=== PATIENT | male | born 1945 | race Caucasian/White ===

== ENCOUNTER 2023-10-09 13:52 | Observation (INO) | payer MEDICARE, OTHER, SELFPAY ==
[2023-10-09] VITALS (14 sets, daily range): BP systolic 118–162; BP diastolic 56–82; PULSE 58; BMI 23.8; BMI 23.9
[2023-10-09 09:54] LABS: % Basophils 0.4 % (0-2); % Eosinophils 0.6 % (0-6); % Immature Granulocytes 0.5 % (0-0.5); % Lymphocytes 7.3 % (20.5-51.1); % Monocytes 8.8 % (1.7-9.3); % Neutrophils 82.4 % (42.2-75.2); Absolute Eosinophils 0.1 10^3/uL (0-0.7); Absolute Lymphocytes 0.6 10^3/uL (1.2-3.4); Absolute Monocytes 0.7 10^3/uL (0.1-0.6); Absolute Neutrophils 6.7 10^3/uL (1.4-6.5); Hemoglobin 12.3 g/dL (13.0-18.0); Mean Corp Hgb Conc. 34.2 g/dL (33.0-37.0); Mean Corpuscular Volume 102.6 fL (80.0-94.0); Mean Platelet Volume 9.6 fL (7.4-10.4); Nucleated Red Blood Cells % 0 % (-); Platelet Count 159 10^3/uL (130-400); Red Blood Cell Count 3.51 10^6/uL (4.70-6.10); Red Cell Dist. Width 12.2 % (11.5-14.5); White Blood Cell Count 8.1 10^3/uL (4.8-10.8)
--- NOTE | 2023-10-09 09:54 | ED.GENMED ---
History of Present Illness
General
Chief Complaint: Fever
Source: patient
Exam Limitations: none
Time Seen by Provider: 10/09/23 09:38
Travel History
Have you had any contact with someone who has COVID-19?: No
Do you have any symptoms of coronavirus? Fever > 100 degrees, chills, cough, shortness of breath, sore throat, loss of taste or smell, muscle aches, or headache?: Yes
Symptoms:: fever
History of Present Illness
History of Present Illness:
See MDM
Past History
Past History
ED Past Medical History: Cancer (Prostate cancer 2012) and Other (Diverticulosis)
ED Past Surgical History: Urological (Prostatectomy 2012) and Other (Hernia repair)
Social History
Tobacco: Non-smoker
Alcohol: Occasional (Rare)
Personal:
Living: with family
Employment: Retired
Family History
Family History: Other (Noncontributory)
Phy Exam
Physical Exam
Physical Exam:
See MDM
Course
Orders/Labs/Results
Orders:
Orders
10/09/23 09:36
Electrocardiogram (*1) Urgent
Reason for Study: Other
Other Reason for Exam: Possible Sepsis
IV Insert/Care/Rem.- Treatment PRN
O2 Therapy [RESP] Urgent
Titrate/Wean O2 to maintain O2 sat greater than (%): 93
Special Instructions: TO MAINTAIN CONTINUOUS O2 SATS > OR = 93%
Pulse Ox/cont/shift [RESP] Urgent
Quantity: 1
Special Instructions: CONTINUOUS
10/09/23 09:37
EKG- Treatment ONCE
10/09/23 09:40
Complete Blood Count/With Diff Urgent
Comprehensive Metabolic Panel Urgent
Blood Culture Q30M
ALEX Source: Blood/Venous
Specimen Description:
Comment: FROM 2 SEPARATE SITES
10/09/23 09:41
COVID-19 Antigen Urgent
Source: Nasal Swab
Lactic Acid Urgent
Blood Culture Q30M
ALEX Source: Blood/Venous
Specimen Description:
Comment: FROM 2 SEPARATE SITES
Influenza A+B Rapid Molecular Urgent
ALEX Source: Nasal Swab
Specimen Description:
10/09/23 09:46
CT Head W/o Iv Contrast Urgent
Comment:
Reason For Exam: fall, headache, hx prostate ca
CR Chest - 2 Views Urgent
Comment:
Reason For Exam: fever, cough, prostate ca
10/09/23 09:49
Acetaminophen [Tylenol] 1,000 mg .ROUTE .STK-MED ONE
10/09/23 09:52
Acetaminophen [Tylenol] 1,000 mg PO NOW STA
10/09/23 09:56
0.9% Sodium Chloride 1000 ml [Nss] 1,000 ml IV BOLUS
10/09/23 11:20
Urinalysis Reflex To Culture Urgent
Date Specimen was Collected: 10/09/23
Time Specimen was Collected: 11:18
Urine Microscopic Reflex Cult Urgent
10/09/23 12:34
Oxycodone [Roxicodone] 5 mg PO NOW STA
Abnormal Lab Results
10/09/23 10/09/23 10/09/23
09:40 09:41 11:20
RBC 3.51 L 10^6/uL
(4.70-6.10)
Hgb 12.3 L g/dL
(13.0-18.0)
Hct 36.0 L %
(39.0-52.0)
MCV 102.6 H fL
(80.0-94.0)
MCH 35.0 H pg
(27.0-31.0)
Absolute Neuts (auto) 6.7 H 10^3/uL
(1.4-6.5)
Absolute Lymphs (auto) 0.6 L 10^3/uL
(1.2-3.4)
Absolute Monos (auto) 0.7 H 10^3/uL
(0.1-0.6)
Neutrophils % 82.4 H %
(42.2-75.2)
Lymphocytes % 7.3 L %
(20.5-51.1)
Sodium 134 L mmol/L
(135-145)
Glucose 110 H mg/dl
(70-99)
Total Protein 6.0 L g/dl
(6.3-8.2)
Albumin 3.4 L g/dl
(3.5-5.0)
Ur Occult Blood Reflex 2+ A
(Negative)
Urine RBC 3-6 A /HPF
(0-2)
SARS-CoV-2 Antigen Positive A
(Negative)
10/09/23 09:40
10/09/23 09:40
Vital Signs
Initial and Last Documented VS:
Initial Vital Signs
Temp Pulse Resp BP Pulse Ox
100.5 F H 69 18 157/71 98
10/09/23 09:38 10/09/23 09:38 10/09/23 09:38 10/09/23 09:38 10/09/23 09:38
Last Documented Vital Signs
Temp Pulse Resp BP Pulse Ox
100.5 F H 69 18 157/71 99
10/09/23 09:38 10/09/23 09:38 10/09/23 09:38 10/09/23 09:38 10/09/23 10:30
MDM/Problems Addressed
Differential Diagnosis Includes:
HPI and MDM Narrative:
77-year-old male presenting with 2 falls earlier today. Patient states he got up to go to the bathroom and fell. He is unsure if he hit his head. He does complain of mild headache. Incidentally, patient found be febrile but he is not sure where
the fever is coming from. He denies shortness of breath or cough. He denies rash. Patient states he has a history of metastatic prostate cancer. He is not currently on chemotherapy or hormone therapy.
On exam, patient is weak and fatigued. He has dry mucous membranes. He does admit to frequent urination but states this is somewhat common after his prostatectomy. Will obtain urinalysis, chest x-ray and viral testing to look for source of
infection.
Physical exam
General: Weak and fatigued
HEENT: protecting airway. Dry mucous membranes
Neck: supple
CV: No evidence of cyanosis. Regular rate and rhythm
Resp: No accessory muscle use. Lungs clear
Abd: Non-distended and nontender
Extremities: Skin abrasions to bilateral elbows without bony tenderness
Neuro: alert
Psych: Normal affect
Skin: Intact
Problems Addressed including Acute and Chronic Conditions affecting care:
1. Fever
Acuity: acute
Prognosis: stable
Details: Patient given Tylenol. Will obtain chest x-ray and urinalysis.
2. Dehydration
Acuity: acute
Prognosis: unstable
Details: Will give IV fluids
3. Fall
Acuity: acute
Prognosis: stable
Details: Will obtain CT head
Updates
10:28 AM daughter now at bedside. I explained to both of them that COVID test is positive.
Given persistent weakness, will admit for IV fluids
Differential Diagnosis (but not limited to): Intracranial hemorrhage, brain mass, pneumonia, viral syndrome, UTI
Testing considered: CT abdomen/pelvis but no tenderness localized
Drug therapy (if applicable): OTC meds, please see d/c instruction regarding Rx drugs
Amount and/or Complexity of Data Reviewed
Clinical info obtained from: Patient
External data reviewed: N/A
Labs I independently reviewed (but not limited to): White blood cell count normal
Radiology: X-ray independently reviewed: Chest x-ray clear
The CT scan was personally and independently reviewed. In addition, official CT report reviewed.
Pulse Ox: not hypoxic
EKG independently reviewed: Sinus rhythm, normal axis, no STEMI
Die Operator: sinus rhythm
Critical Care: N/A
Risk of Complication:
Social Determinants of health: Good social support
Discussed with other providers: Hospitalist
Escalation of Care includes Admit/Obs: Given frequent falls and dehydration, will continue IV fluids and admit
Occasional wrong word or 'sound a like' substitutions may have occurred due to the inherent limitations of voice recognition software. Read the chart carefully and recognize, using context, where substitutions have occurred.
*Critical Care Note
Total Time (30-74mins, 75-104mins- exclusive of procedures): Not Applicable
ED Attending Note
-
Portions of this chart may have been created with voice recognition software.� Occasional wrong word or��sound alike� substitutions may have occurred due to the inherent limitations of voice recognition software.
Discharge Plan
Departure
Patient Disposition: Admit
Date of Disposition: 10/09/23
Time of Disposition: 12:37
Admit to: Med/Surg
Presentation/result/management discussed w/ accepting MD/DO: Hospitalist
Discharge Problem:
COVID-19, Dehydration, Abrasion of elbow
Prescriptions:
No Action
multivitamin [Daily Multiple] 1 EACH tablet
1 tab PO DAILY
glucosam-chond id-jurfvl-fi ac 1 EACH capsule
1 cap PO DAILY
Patient Comments:
1500mg/1200 mg
Calcium 600-Vit D3 500 Softgel
2 tab PO Q48H
Patient Comments:
atorvastatin 10 MG tablet
10 mg PO .QPM EVERY 48 HRS
Patient Comments:
patient tAKES THIS EVERY OTHER DAY
gabapentin 100 MG capsule
100 mg PO HS
triptorelin pamoate [Trelstar] 11.25 MG suspension for reconstitution
11.25 mg IM S8OEISH
acetaminophen [Tylenol Extra Strength] 500 MG tablet
1,000 mg PO Q6HPRN PRN (Reason: back pain)
ibuprofen 400 MG tablet
400 mg PO Q6HPRN PRN (Reason: back pain)
pembrolizumab [Keytruda] 100 MG/4 ML solution
100 mg IV .EVERY 3 WKS
oxycodone 10 MG tablet
10 mg PO Q6HPRN PRN (Reason: pain) Qty: 12 0RF
Referrals:
UNKNOWN - PT DOES,NOT KNOW [Family Provider] -
Interventions
Interventions:
*Risk Screen - Suicide Last Done: 10/09/23 09:35
*General Assessment Last Done: 10/09/23 09:35
*Neglect/Abuse Screening Last Done: 10/09/23 09:35
*ED COVID-19 Vaccine History Last Done: 10/09/23 09:35
ED- Neurological Assessment Last Done: 10/09/23 10:30
ED-Skin Assessment Last Done: 10/09/23 10:30
[2023-10-09] MEDS: TYLENOL 1000 MG PO (09:55)
[2023-10-09] MEDS: NSS 1000 IV ×2 (09:56→18:18)
[2023-10-09 10:04] LABS: COVID-19 Antigen Positive (Negative)
[2023-10-09 10:06] LABS: Lactic Acid 1.1 mmol/L (0.7-2.0)
[2023-10-09 10:08] LABS: ALT (SGPT) 21 U/L (0-50); AST (SGOT) 52 U/L (17-59); Albumin 3.4 g/dl (3.5-5.0); Alkaline Phosphatase 107 U/L (38-126); Blood Urea Nitrogen 19 mg/dl (9-20); Calcium 8.9 mg/dl (8.4-10.2); Carbon Dioxide 29 mmol/L (22-30); Chloride 100 mmol/L (98-107); Estimated Creatinine Clearance 95 ml/min; Glucose 110 mg/dl (70-99); Potassium 3.6 mmol/L (3.5-5.1); Sodium 134 mmol/L (135-145); Total Bilirubin 0.6 mg/dl (0.2-1.3); eGFR > 60.00
[2023-10-09 12:04] LABS: Urine Albumin Trace (Neg - Trace); Urine Bilirubin Negative (Negative); Urine Character Clear (Clear); Urine Color Yellow; Urine Glucose Negative (Negative); Urine Ketone Negative (Negative); Urine Leukocyte Negative (Negative); Urine Nitrite Negative (Negative); Urine Occult Blood 2+ (Negative); Urine Urobilinogen Negative (Neg - 1+)
[2023-10-09 12:24] LABS: Urine Squamous Cell 0-2 /LPF (Few)
[2023-10-09] MEDS: ROXICODONE 5 MG PO (12:58)
--- NOTE | 2023-10-09 13:10 | HPS.HSE ---
Family Physician
-
Family Physician: NOT KNOW UNKNOWN - PT DOES
Chief Complaint
-
falls
History of Present Illness
77 y/o M with PMHx metastatic prostate CA who presents with weakness and falls. Today the patient felt weak and rundown. Had 2 falls at home and the could not get him up. He denies any other recent symptoms including fevers, chest pain,
shortness of breath, nausea, vomiting, diarrhea, abdominal pain, headache, rash, dysuria, focal neurological deficit. The ER the patient was febrile and found to be COVID-positive.
Medical History
Past Medical History
Past Medical History: Reports Hypercholesterolemia and Other (as per HPI)
Additional Past Medical History:
as per HPI
Past Surgical History: Reports Other (N/A)
Social History
Tobacco: Non-smoker
Alcohol: Occasional
Drug: None
Family History
Family History: Not pertinent
Allergies / Home Medications
Allergies reflects when Allergies were last updated in [facility].
Home Medications with original date entered in [facility]
Allergy/Medication List:
Allergies
Allergy/AdvReac Type Severity Reaction Status Date / Time
No Known Allergies Allergy Verified 10/09/23 09:38
Home Medications
exqygjhuyx-wyduprjxzx-sipxpipl-hyalur ac 375 mg-300 mg-175 mg-2 mg cap 1 cap PO DAILY 07/22/13
multivitamin (Daily Multiple tablet) 1 tab PO DAILY 07/22/13
Calcium 600-Vit D3 500 Softgel 2 tab PO Q48H 03/30/17
atorvastatin 10 mg tablet 10 mg PO .QPM EVERY 48 HRS 03/15/21
gabapentin 100 mg capsule 100 mg PO HS 03/15/21
triptorelin pamoate 11.25 mg IM suspension (Trelstar) 11.25 mg IM [id number] 03/15/21
acetaminophen 500 mg tablet (Tylenol Extra Strength) 1,000 mg PO Q6HPRN PRN back pain 02/27/22
ibuprofen 400 mg tablet 400 mg PO Q6HPRN PRN back pain 02/27/22
oxycodone 10 mg tablet 10 mg PO Q6HPRN PRN pain #12 tabs 02/27/22
pembrolizumab 25 mg/mL intravenous solution (Keytruda) 100 mg IV .EVERY 3 WKS 02/27/22
Review of Systems
-
History Source: Patient
A 12 point ROS was completed and negative except as noted: Yes
Physical Exam
Vital Signs
Vital Signs
Temp Pulse Resp BP Pulse Ox
100.5 F H 69 18 157/71 99
10/09/23 09:38 10/09/23 09:38 10/09/23 09:38 10/09/23 09:38 10/09/23 10:30
Physical Exam
General: Other (.)
Laboratory Results
-
10/09/23 09:40
10/09/23 09:40
Laboratory Results
Lactic Acid 1.1 mmol/L (0.7-2.0) 10/09/23 09:41
Total Bilirubin 0.6 mg/dl (0.2-1.3) 10/09/23 09:40
AST 52 U/L (17-59) 10/09/23 09:40
ALT 21 U/L (0-50) 10/09/23 09:40
Alkaline Phosphatase 107 U/L (38-126) 10/09/23 09:40
Impression/Plan
-
Gen: NAD, AAOx3, appears chronically ill.
Eyes: EOMI, PERRLA, no scleral icterus.
Neck: supple.
CV: blossom, reg rhythm, +S1/S2, no m/r/g.
Resp: CTAB, no rales, wheezes, or rhonchi.
Abd: +BS, soft, NT, ND
Skin: No rashes.
Neuro: CN 2-12 intact, non-focal.
Psych: Normal mood and affect.
CXR: No acute cardiopulmonary process.
CT brain: No acute intracranial abnormalities. Findings compatible with diffuse cortical atrophy with minimal nonspecific white matter changes.
Acute COVID infection:
-CXR clear, not hypoxemic, no COVID directed therapies indicated
-weakness likely due to acute COVID infection, PT/OT
-gentle IVFs
Metastatic prostate CA
HLD: Cont statin
DNR - confirmed with pt in the ER with present
Lovenox
[2023-10-09] MEDS: LOVENOX 40 MG SC (18:18)
[2023-10-09] MEDS: TYLENOL 650 MG PO (20:30)
[2023-10-10] MEDS: ROXICODONE 5 MG PO ×2 (03:44→21:12)
--- NOTE | 2023-10-10 06:41 | W.PN.HOSP.TC ---
Today's Communication/Plan
-
see bold
Assessment / Plan
Assessment / Plan
Gen: NAD, AAOx3, appears chronically ill.
Eyes: EOMI, PERRLA, no scleral icterus.
Neck: supple.
CV: RRR, +S1/S2, no m/r/g.
Resp: CTAB anteriorly, no rales, wheezes, or rhonchi.
Abd: remains +BS, soft, NT, ND
Skin: No rashes.
Neuro: CN 2-12 intact, non-focal.
Psych: Normal mood and affect.
CXR: No acute cardiopulmonary process.
CT brain: No acute intracranial abnormalities. Findings compatible with diffuse cortical atrophy with minimal nonspecific white matter changes.
Acute COVID infection:
-CXR clear, not hypoxemic, no COVID directed therapies indicated
-weakness likely due to acute COVID infection, PT/OT
-gentle IVFs
-Zofran PRN for vomiting. If vomiting improves can try Paxlovid.
Metastatic prostate CA
HLD: Cont statin
DNR - confirmed with pt in the ER with present
Lovenox
Anticipated Discharge: Within 24 hours
Subjective/Interval History
-
Date of Service: October 10, 2023
Patient complains of vomiting. Says his chest is sore. Denies shortness of breath.
Objective Data
-
Vital Signs:
Vital Signs
Temp Pulse Resp BP Pulse Ox
98.1 F 60 20 144/71 94
10/09/23 23:35 10/09/23 23:35 10/09/23 23:35 10/09/23 23:35 10/09/23 23:35
I&O
10/08/23 10/09/23 10/10/23
06:59 06:59 06:59
Intake Total 1040 / 1040
Output Total 1200 / 1200
Balance -160 / -160
[2023-10-10] MEDS: ZOFRAN 4 MG IV (07:52)
[2023-10-10] MEDS: NSS 1000 IV ×2 (07:52→21:13)
[2023-10-10 08:08] VITALS: BP 177/96
[2023-10-10] MEDS: DECADRON 1 MG PO (09:14)
[2023-10-10] MEDS: THERAGRAN 1 TABLET PO (09:15)
[2023-10-10] MEDS: DUPHALAC/CHRONULAC 10 GRAMS PO (09:15)
[2023-10-10] MEDS: OSCAL 500 + D 500 MG PO (09:15)
[2023-10-10] MEDS: TYLENOL 650 MG PO (09:16)
[2023-10-10 10:40] VITALS: BMI 23.9
--- NOTE | 2023-10-10 13:04 | CM ---
CM following re: d/c planning
Chart reviewed
CM spoke with the patient via phone due to covid (+) dx; IA completed
Pt is also here as observation; MONIQUE letter reviewed via phone and a copy sent to email address [email or web address]
Pt states he & his spouse reside at [facility] in a one story dwelling with no MELVINA
L D RN patient reports independence at baseline
Pt has no past SNF/DME hx, has had [facility] however doesn't recall the agency
Pt nunez prescription coverage and rx's are filled at [facility] in [place]
Pt PCP-Dr. Gilbert Boo
No needs are anticipated once patient is stable
CM will continue to monitor patient progress and assist with any needs as applicable
PLAN; d/c home no needs anticipated
[2023-10-10 16:30] VITALS: BP 174/79
[2023-10-10] MEDS: LOVENOX 40 MG SC (18:18)
[2023-10-10] MEDS: LIPITOR 10 MG PO (21:08)
[2023-10-10 23:17] VITALS: BP 178/81
[2023-10-11 07:45] VITALS: BP 164/78
[2023-10-11] MEDS: ROXICODONE 5 MG PO ×2 (08:19→18:01)
[2023-10-11] MEDS: DECADRON 1 MG PO (08:22)
[2023-10-11] MEDS: METAMUCIL, KONSYL 1 PACKET PO (08:22)
[2023-10-11] MEDS: NSS 1000 IV (09:11)
--- NOTE | 2023-10-11 10:34 | W.PN.HOSP.TC ---
Today's Communication/Plan
-
d/c after shoulder Xray
Assessment / Plan
Assessment / Plan
Gen: NAD, AAOx3, appears chronically ill.
Eyes: EOMI, PERRLA, no scleral icterus.
Neck: supple.
CV: remains RRR, +S1/S2, no m/r/g.
Resp: CTAB anteriorly, no rales, wheezes, or rhonchi.
Abd: continues to remain +BS, soft, NT, ND
Skin: No rashes.
MSK: L shoulder without effusion, erythema, deformity. Mild TTP with palpation anteriorly and with external rotation.
Neuro: CN 2-12 intact, non-focal.
Psych: Normal mood and affect.
CXR: No acute cardiopulmonary process.
CT brain: No acute intracranial abnormalities. Findings compatible with diffuse cortical atrophy with minimal nonspecific white matter changes.
Acute COVID infection:
-CXR clear, not hypoxemic, no COVID directed therapies indicated
-weakness likely due to acute COVID infection, PT/OT
-gentle IVFs
L shoulder pain:
-check L shoulder Xray
Metastatic prostate CA
HLD: Cont statin
DNR - confirmed with pt in the ER with present
Lovenox
Anticipated Discharge: Today
Subjective/Interval History
-
Date of Service: October 11, 2023
c/o L shoulder pain. Nausea has resolved.
Objective Data
-
Vital Signs:
Vital Signs
Temp Pulse Resp BP Pulse Ox
100.1 F 50 16 164/78 96
10/11/23 07:45 10/11/23 07:45 10/11/23 07:45 10/11/23 07:45 10/11/23 07:45
I&O
10/10/23 10/11/23 10/12/23
06:59 06:59 06:59
Intake Total 1040 / 1040 880 / 880 975 / 975
Output Total 1200 / 1200 600 / 600
Balance -160 / -160 280 / 280 975 / 975
[2023-10-11 15:00] VITALS: BP 167/79
[2023-10-11] MEDS: LOVENOX 40 MG SC (18:00)
[2023-10-11 23:05] VITALS: BP 172/88
[2023-10-12] MEDS: OSCAL 500 + D 500 MG PO (07:56)
[2023-10-12] MEDS: THERAGRAN 1 TABLET PO (07:56)
[2023-10-12] MEDS: DECADRON 1 MG PO (07:56)
[2023-10-12 08:04] VITALS: BP 175/81
[2023-10-12] MEDS: ROXICODONE 5 MG PO ×2 (08:37→21:57)
--- NOTE | 2023-10-12 10:21 | W.PN.HOSP.TC ---
Today's Communication/Plan
-
see bold
Assessment / Plan
Assessment / Plan
Gen: NAD, AAOx3, appears chronically ill.
Eyes: EOMI, PERRLA, no scleral icterus.
Neck: supple.
CV: continues to remain RRR, +S1/S2, no m/r/g.
Resp: remains CTAB anteriorly, no rales, wheezes, or rhonchi.
Abd: +BS, soft, NT, ND
Skin: No rashes.
Neuro: CN 2-12 intact, non-focal.
Psych: Normal mood and affect.
CXR: No acute cardiopulmonary process.
CT brain: No acute intracranial abnormalities. Findings compatible with diffuse cortical atrophy with minimal nonspecific white matter changes.
Acute COVID infection:
-CXR clear, not hypoxemic, no COVID directed therapies indicated
-weakness likely due to acute COVID infection, PT/OT
-gentle IVFs
Polyuria and dysuria:
-U/A on 10/09/23 unremarkable
-will check repeat U/A
L shoulder pain: L shoulder Xray: Degenerative changes. No findings to suggest recent cortical fracture or dislocation.
Metastatic prostate CA
HLD: Cont statin
DNR - confirmed with pt in the ER with present
Lovenox
Anticipated Discharge: Within 24 hours
Subjective/Interval History
-
Date of Service: October 12, 2023
Denies CP/SOB. c/o polyuria and dysuria O/N.
Objective Data
-
Vital Signs:
Vital Signs
Temp Pulse Resp BP Pulse Ox
98.1 F 49 18 175/81 97
10/12/23 08:04 10/12/23 08:04 10/12/23 08:04 10/12/23 08:04 10/12/23 08:04
I&O
0210/12/23 10/13/23
06:59 06:59 06:59
Intake Total 880 / 880 1335 / 1335
Output Total 600 / 600 1100 / 1100
Balance 280 / 280 235 / 235
--- NOTE | 2023-10-12 11:07 | CM ---
Addendum entered by Fabi Ferris 10/12/23 13:24:
CM discussed with .
D/c on hold.
[facility] has accepted, pending d/c.
Updated PT may be beneficial also tomorrow, although pt does not want SNF.
Walker to be provided prior to d/c also.
Goal: home with VN and walker.
Original Note:
CM following re: d/c planning.
Pt +COVID. CM spoke with pt telephonically.
He states he requires assistance with tasks, is able to walk with a walker.
Pt requests a walker at d/c. CM attempted to reach PT, left regarding this.
CM requested walker script from MD.
Pt is not interested in SNF at this time, he is agreeable to home care.
He is agreeable to [facility], if they cannot service his location, he is agreeable to [facility] as a second choice.
Ref sent.
Pt states he sees Gilbert Boo, PCP, but has not been there in a few years.
He states he has prostate CA and sees Yeny Terry often with palliative care.
Update provided to [facility] about this regarding orders.
CM offered information for private duty caregivers, pt states will be assisting him at home.
Goal: home with [facility], pending acceptance.
Update - d/c on hold, possible d/c tomorrow.
[2023-10-12 12:53] LABS: Urine Albumin Trace (Neg - Trace); Urine Bilirubin Negative (Negative); Urine Character Clear (Clear); Urine Color Yellow; Urine Glucose Negative (Negative); Urine Ketone Negative (Negative); Urine Leukocyte Negative (Negative); Urine Nitrite Negative (Negative); Urine Occult Blood Negative (Negative); Urine Specific Gravity 1.015 (<1.030); Urine Urobilinogen Negative (Neg - 1+)
[2023-10-12] MEDS: TYLENOL 650 MG PO (12:58)
[2023-10-12 13:20] VITALS: BP 159/76; PULSE 60; O2SAT 95
[2023-10-12] MEDS: LOVENOX 40 MG SC (17:00)
[2023-10-12 17:10] VITALS: BP 174/77
[2023-10-12] MEDS: LIPITOR 10 MG PO (21:51)
[2023-10-12 23:00] VITALS: BP 157/90
[2023-10-13] MEDS: TYLENOL 650 MG PO ×3 (00:21→15:43)
[2023-10-13 07:00] VITALS: BP 168/85
[2023-10-13] MEDS: DECADRON 1 MG PO (09:17)
[2023-10-13] MEDS: DUPHALAC/CHRONULAC 10 GRAMS PO (09:17)
[2023-10-13] MEDS: ROXICODONE 5 MG PO (10:36)
--- NOTE | 2023-10-13 10:48 | W.PN.HOSP.TC ---
Today's Communication/Plan
-
d/c
Assessment / Plan
Assessment / Plan
Gen: remains NAD, AAOx3, appears chronically ill.
Eyes: EOMI, PERRLA, no scleral icterus.
Neck: supple.
CV: RRR, +S1/S2, no m/r/g.
Resp: CTAB anteriorly, no rales, wheezes, or rhonchi.
Abd: remains +BS, soft, NT, ND
Skin: remains No rashes.
Neuro: CN 2-12 intact, non-focal.
Psych: Normal mood and affect.
CXR: No acute cardiopulmonary process.
CT brain: No acute intracranial abnormalities. Findings compatible with diffuse cortical atrophy with minimal nonspecific white matter changes.
Acute COVID infection:
-CXR clear, not hypoxemic, no COVID directed therapies indicated
-weakness likely due to acute COVID infection, PT/OT
-gentle IVFs
Other problems:
Polyuria and dysuria: U/A x 2 NEG for evidence of infection
L shoulder pain: L shoulder Xray: Degenerative changes. No findings to suggest recent cortical fracture or dislocation.
Metastatic prostate CA
HLD: Cont statin
DNR - confirmed with pt in the ER with present
Lovenox
Medically cleared for d/c, case management aware.
Total time spent on d/c = 31 min. This included today's physical exam, progress note, review of laboratory and diagnostic data, preparation of discharge documents and prescriptions, and discussions about the pt's hospital course and discharge plan
with the patient and other medical dir involved in the patient's care.
Anticipated Discharge: Today
Subjective/Interval History
-
Date of Service: October 13, 2023
Polyuria has resolved, dysuria has improved.
Objective Data
-
Vital Signs:
Vital Signs
Temp Pulse Resp BP Pulse Ox
98.1 F 47 16 168/85 97
10/13/23 07:00 10/13/23 07:00 10/13/23 07:00 10/13/23 07:00 10/13/23 07:54
I&O
10/12/23 10/13/23 10/14/23
06:59 06:59 06:59
Intake Total 1335 / 1335 1920 / 1920
Output Total 1100 / 1100 1250 / 1250
Balance 235 / 235 670 / 670
--- NOTE | 2023-10-13 11:54 | CM ---
Addendum entered by Pennie Amaral 10/13/23 14:34:
Correction, patient was observation.
Original Note:
Patient seen bedside.
Patient for d/c home today.
Script provided to PT for RW.
Spouse will transport home.
IMM reviewed verbally with patient, unable to sign.
Plan: home with [facility]
--- NOTE | 2023-10-13 12:45 | W.DCSUMMARY ---
Discharge Summary
Discharge Data
Date of Admission: 10/09/23
Date of Discharge: 10/13/23
-
Pending Results: No
Hospital Course
Primary diagnoses:
Weakness due to acute COVID infection
Polyuria and dysuria
Secondary diagnoses:
Left shoulder pain
Metastatic prostate cancer
Hyperlipidemia
Consultants:
None
Imaging:
L shoulder Xray: Degenerative changes. No findings to suggest recent cortical fracture or dislocation.
CXR: No acute cardiopulmonary process.
CT brain: No acute intracranial abnormalities. Findings compatible with diffuse cortical atrophy with minimal nonspecific white matter changes.
Hospital course: 69-year-old male who presented with chief complaint of falls. He was having weakness and was found to be COVID-positive on admission. Chest x-ray was clear as above. He was not hypoxemic and no COVID directed therapies were
indicated. His weakness was likely due to acute COVID infection. He was seen by PT and OT. He received gentle IV fluids. Symptomatically improved. He also complained of polyuria and dysuria. He had 2 urinalyses that were negative for evidence
of infection. He was discharged in medically stable condition.
Discharge Plan
-
Patient Disposition: Home with Home Care
Discharge Diagnosis/Procedures: Acute COVID infection, weakness
Condition: Good
Diet: Regular
Activity: As tolerated
Driving Restrictions: Not until seen by your Dr
Other Services: [facility]N
Referrals:
UNKNOWN - PT DOES,NOT KNOW [Family Provider] - in less than 1 week
Prescriptions:
Continued
Calcium 600-Vit D3 500 Softgel
1 tab PO Q48H@0800
Patient Comments:
atorvastatin 10 MG tablet
10 mg PO Q48H@2200
Patient Comments:
ibuprofen 400 MG tablet
400 mg PO Q6HPRN PRN (Reason: severe pain)
Patient Comments:
10/09/2023, pt. uses this med. as a buffer between their Oxycodone when their pain is severe.
therapeutic multivitamin Tablet
1 tab PO Q48H@0800
dexamethasone 1 mg Tablet
1 mg PO DAILY
furosemide 20 mg Tablet
20 mg PO .SEE BELOW PRN (Reason: leg swelling)
Rx Instructions:
10/09/2023, this med. is currently on HOLD.
oxycodone 5 mg Tablet
5 mg PO Q8H PRN (Reason: severe pain)
Patient Comments:
10/09/2023, pt. filled this med. on 10/03/2023 for 90 tablets according to PDMP.
lactulose 10 gram/15 mL Solution
15 ml PO .ON EVERY THIRD DAY
Glucosamine Chondroitin
1 cap PO Q48H@0800
Metamucil
1 tbsp PO .ON EVERY THIRD DAY
Trelstar
1 dose IM [id number]
--- NOTE | 2023-10-13 14:05 | VNURNOTE ---
Home Health Liaison spoke with patient's Payton by phone at 1400 to discuss [facility] nurse/therapy, visits, schedule and homebound status. Patient is agreeable and understands that visits at home will be 2-3 x per week to assess and teach medical
management. Patient requested start of care visit to be 10/15.
[facility] brochure provided with contact information. Patient is aware that [facility] will contact them for start of care in 1-2 days after discharge from .
[facility] referral previously accepted in [facility].
== END 2023-10-13 16:29 | disposition home health service (06) ==
LOC: 4 WEST ACU 13:52
PROVIDERS: ADMITTING PHYSICIAN Internal Medicine; EMERGENCY PHYSICIAN Student in an Organized Health Care Education/Training Program
DX: U07.1 COVID-19 (principal); R50.9 Fever, unspecified; R05.9 Cough, unspecified; R29.6 Repeated falls; R51.9 Headache, unspecified; R53.1 Weakness; R53.83 Other fatigue; E86.0 Dehydration; E78.00 Pure hypercholesterolemia, unspecified; R35.0 Frequency of micturition; M25.512 Pain in left shoulder; R35.89 Other polyuria; R30.0 Dysuria; E78.5 Hyperlipidemia, unspecified; S50.312A Abrasion of left elbow, initial encounter; S50.311A Abrasion of right elbow, initial encounter; W18.30XA Fall on same level, unspecified, initial encounter; Y93.01 Activity, walking, marching and hiking; Y92.009 Unspecified place in unspecified non-institutional (private) residence as the place of occurrence of the external cause; Z91.81 History of falling; Z85.46 Personal history of malignant neoplasm of prostate; Z90.79 Acquired absence of other genital organ(s); Z66 Do not resuscitate
CPT/HCPCS: 70450; 71046; 73030; 80053; 81003; 81015; 83605; 85025; 87040; 87502; 87811; 93005; 96360; 97530; 99285; G0378

== ENCOUNTER 2023-12-01 15:54 | Outpatient (RCR) | payer MEDICARE, SELFPAY ==
[2023-12-01 15:00] LABS: % Basophils 0.3 % (0-2); % Eosinophils 0.8 % (0-6); % Immature Granulocytes 0.7 % (0-0.5); % Lymphocytes 5.5 % (20.5-51.1); % Monocytes 5.3 % (1.7-9.3); % Neutrophils 87.4 % (42.2-75.2); Absolute Eosinophils 0.1 10^3/uL (0-0.7); Absolute Immature Granulocytes 0.1 10^3/uL (0-0.05); Absolute Lymphocytes 0.5 10^3/uL (1.2-3.4); Absolute Monocytes 0.5 10^3/uL (0.1-0.6); Absolute Neutrophils 7.8 10^3/uL (1.4-6.5); Hematocrit 37.8 % (39.0-52.0); Hemoglobin 12.5 g/dL (13.0-18.0); Mean Corp Hgb Conc. 33.1 g/dL (33.0-37.0); Mean Corpuscular Hgb 32.6 pg (27.0-31.0); Mean Corpuscular Volume 98.7 fL (80.0-94.0); Mean Platelet Volume 9.6 fL (7.4-10.4); Nucleated Red Blood Cells % 0 % (-); Platelet Count 206 10^3/uL (130-400); Red Blood Cell Count 3.83 10^6/uL (4.70-6.10); Red Cell Dist. Width 13.1 % (11.5-14.5); White Blood Cell Count 8.9 10^3/uL (4.8-10.8)
[2023-12-01 15:38] LABS: ALT (SGPT) 17 U/L (0-50); AST (SGOT) 31 U/L (17-59); Albumin 3.6 g/dl (3.5-5.0); Alkaline Phosphatase 132 U/L (38-126); Blood Urea Nitrogen 20 mg/dl (9-20); Calcium 9.4 mg/dl (8.4-10.2); Carbon Dioxide 30 mmol/L (22-30); Chloride 103 mmol/L (98-107); Glucose 96 mg/dl (70-99); Potassium 4.4 mmol/L (3.5-5.1); Sodium 135 mmol/L (135-145); Total Bilirubin 0.4 mg/dl (0.2-1.3); Total Protein 6.3 g/dl (6.3-8.2); eGFR > 60.00
== END 2023-12-30 23:59 | disposition home or self-care (01) ==
LOC: OID 15:54
PROVIDERS: ATTENDING PHYSICIAN Internal Medicine Hematology & Oncology
DX: C61 Malignant neoplasm of prostate (principal); R53.1 Weakness
CPT/HCPCS: 36561; 76937; 77001; 80053; 85025; 99152; 99153; C1788

== ENCOUNTER → 2023-12-05 08:25 | Outpatient (REF) | payer MEDICARE, SELFPAY ==
[2023-12-05 08:50] VITALS: BP 178/81; BP_SYST 44
[2023-12-05] MEDS: ANCEF 10 IV (09:39)
[2023-12-05 10:35] VITALS: BP 179/83; BP_SYST 50
[2023-12-05 10:40] VITALS: BP 179/75
== END ==
LOC: RADI 08:25
PROVIDERS: ATTENDING PHYSICIAN Internal Medicine Hematology & Oncology; FAMILY PHYSICIAN Internal Medicine
DX: C61 Malignant neoplasm of prostate (principal)
CPT/HCPCS: 36561; 76937; 77001; 99152; 99153; C1788

== ENCOUNTER 2023-12-23 18:02 | Inpatient (IN) | payer MEDICARE, SELFPAY ==
[2023-12-23] VITALS (8 sets, daily range): BP systolic 152–199; BP diastolic 74–103; BMI 24.7; BMI 23.8
[2023-12-23 14:40] LABS: Glucose - Point of Care 133 mg/dl (70-99)
--- NOTE | 2023-12-23 15:08 | ED.CVA ---
History of Present Illness
General
Chief Complaint: CVA/TIA Symptoms
Time Seen by Provider: 12/23/23 15:05
Onset of Stroke Symptoms
Onset of symptoms known: Yes
Date of onset of symptoms: 12/21/23
Travel History
Have you had any contact with someone who has COVID-19?: No
Do you have any symptoms of coronavirus? Fever > 100 degrees, chills, cough, shortness of breath, sore throat, loss of taste or smell, muscle aches, or headache?: No
History of Present Illness
History of Present Illness:
78-year-old male with history of metastatic prostate cancer presents to the emergency department for evaluation of intermittent slurred speech as well as left hand weakness over the past 2 days. Patient notes that he feels clumsy while trying to
write with a left hand (he is [id number]) and is occasionally drop things. Denies any vision changes, neck pain, extremity paresthesias. He does note a subacute gait instability since being diagnosed with COVID-19 in October, denies any
acute worsening. Also notes a persistent headache for the past 2 months since that COVID diagnosis. No chest pain or shortness of breath. No prior history of stroke. He is not on any antiplatelets, does take atorvastatin every 48 hours
Past History
Past History
ED Past Medical History: Cancer (Prostate cancer 2012) and Other (Diverticulosis)
ED Past Surgical History: Urological (Prostatectomy 2012) and Other (Hernia repair)
Social History
Tobacco: Non-smoker
Alcohol: Occasional (Rare)
Personal:
Living: with family
Employment: Retired
Family History
Family History: Other (Noncontributory)
Review of Systems
Review of Systems
Allergies reviewed?: Yes
All Other Systems: ROS reviewed and negative except as documented in HPI and ROS
Phy Exam
Physical Exam
Physical Exam:
GEN: Well appearing, NAD, WDWN
HEENT: Oral mucosa moist, no scleral icterus, no nasal congestion
Cardiac: Regular rate and rhythm
Lung: No respiratory distress, no tachypnea, lungs CTAB
MSK: No gross deformity or injuries
Skin: Good color, no pallor or jaundice, no rashes
Neuro: AO x3; CN II-XII grossly intact. Left hand technical engineer is 4 out of 5 otherwise bilateral upper extremity strength is 5 out of 5 in all schreiber, no sensory level deficit. Strength is 4 5 to hip flexion otherwise all schreiber are 5 out of 5 bilaterally
and symmetric, bilateral lower extremity sensation intact and symmetric
Psych: Calm, cooperative
Course
Orders/Labs/Results
Orders:
Orders
12/23/23 14:28
Electrocardiogram (*1) Urgent
Reason for Study: TIA/Stroke
CT Head W/o Iv Contrast Urgent
Comment: symptoms started 2 days ago
Reason For Exam: intermittent slurred speech and left hand weakness
12/23/23 14:30
EKG- Treatment ONCE
12/23/23 15:56
Complete Blood Count/With Diff Urgent
Comprehensive Metabolic Panel Urgent
Prothrombin Time Urgent
12/23/23 16:49
Dexamethasone Sod Phosphate [Decadron] 10 mg IV NOW STA
Oxycodone [Roxicodone] 5 mg PO NOW STA
12/23/23 17:50
ONCOLOGY CONSULT Routine
Consulting Provider: Marguerite Sosa
Was physician already notified: Yes
Cervical Spine Without MR [MR Cervical Spine Without] Routine
Comment:
Reason For Exam: pain r/o metstatic disease
Recent pill cam endoscopy?: No
MRI Brain [MR Brain W/o & With Contrast] Routine
Comment:
Reason For Exam: headache
Recent pill cam endoscopy?: No
12/23/23 17:52
NEUROLOGY CONSULT Routine
Consulting Provider: Mishel Floyd
Was physician already notified: Yes
12/23/23 17:54
Admit/Transfer Patient As Directed
Co-Sign Provider:
Level of Care: Inpatient admission
Assign to:: Medical/Surgical
Physician / Group: joe
Diagnosis: metstatic disease
Reason for Hospitalization: metstatic disease
Expected length of stay greater than two midnights?: Yes
ELOS- Estimated Length of Stay in days: 3
I certify the patient meets the requirements for IP care: Yes
12/23/23 17:55
Code Status As Directed
Resuscitation Status: Do not resuscitate
Reached after discussion with pt or family/Healthcare POA: Yes
DNR Bracelet Application ONCE
Abnormal Lab Results
12/23/23 12/23/23
14:34 15:56
RBC 3.64 L 10^6/uL
(4.70-6.10)
Hgb 11.9 L g/dL
(13.0-18.0)
Hct 35.0 L %
(39.0-52.0)
MCV 96.2 H fL
(80.0-94.0)
MCH 32.7 H pg
(27.0-31.0)
Absolute Lymphs (auto) 0.8 L 10^3/uL
(1.2-3.4)
Lymphocytes % 13.2 L %
(20.5-51.1)
Monocytes % 10.7 H %
(1.7-9.3)
BUN 22 H mg/dl
(9-20)
Glucose 126 H mg/dl
(70-99)
Alkaline Phosphatase 128 H U/L
(38-126)
Total Protein 6.0 L g/dl
(6.3-8.2)
POC Glucose 133 H mg/dl
(70-99)
12/23/23 15:56
12/23/23 15:56
Vital Signs
Initial and Last Documented VS:
Initial Vital Signs
Temp Pulse Resp BP Pulse Ox
98.2 F 60 18 152/74 100
12/23/23 14:22 12/23/23 14:22 12/23/23 14:22 12/23/23 14:22 12/23/23 14:22
Last Documented Vital Signs
Temp Pulse Resp BP Pulse Ox
98.2 F 61 15 172/87 100
12/23/23 14:22 12/23/23 21:00 12/23/23 21:00 12/23/23 21:00 12/23/23 14:22
MDM/Problems Addressed
MDM/Problems Addressed:
Unfortunately patient is identified to have a relatively large extra-axial mass causing mild mass effect which is likely the cause of his acute neurologic symptoms. I reviewed the imaging findings with neurology on-call, recommends admission for
further clarification with MRI as well as IV steroids. Given the finding of the mass I do not suspect acute CVA
Comment
Comment:
EKG independently interpreted by me shows sinus bradycardia at a rate of [address] changes concerning for ischemia, QTc of 434
*Critical Care Note
Total Time (30-74mins, 75-104mins- exclusive of procedures): Not Applicable
ED Attending Note
-
Portions of this chart may have been created with voice recognition software.� Occasional wrong word or��sound alike� substitutions may have occurred due to the inherent limitations of voice recognition software.
Discharge Plan
Departure
Patient Disposition: Admit
Date of Disposition: 12/23/23
Time of Disposition: 16:59
Admit to: Med/Surg
Presentation/result/management discussed w/ accepting MD/DO: Hospitalist
Discharge Problem:
Intracranial mass, Left hand weakness
Interventions
Interventions:
*Risk Screen - Suicide Last Done: 12/23/23 14:22
*General Assessment Last Done: 12/23/23 14:22
*Neglect/Abuse Screening Last Done: 12/23/23 14:22
ED- Fall Risk Assessment Last Done: 12/23/23 15:28
*ED COVID-19 Vaccine History Last Done: 12/23/23 15:28
*Nursing Disposition Last Done: 12/23/23 22:03
ED- Pulmonary Assessment Last Done: 12/23/23 15:22
ED- Neurological Assessment Last Done: 12/23/23 15:22
ED- Cardiac Assessment Last Done: 12/23/23 15:22
ED Swallowing Screen Last Done: 12/23/23 15:22
Discharge Date and Time
Discharge Date/Time: 12/23/23 22:03
[2023-12-23 16:05] LABS: % Basophils 0.7 % (0-2); % Eosinophils 2.2 % (0-6); % Immature Granulocytes 0.3 % (0-0.5); % Lymphocytes 13.2 % (20.5-51.1); % Monocytes 10.7 % (1.7-9.3); % Neutrophils 72.9 % (42.2-75.2); Absolute Eosinophils 0.1 10^3/uL (0-0.7); Absolute Lymphocytes 0.8 10^3/uL (1.2-3.4); Absolute Monocytes 0.6 10^3/uL (0.1-0.6); Absolute Neutrophils 4.4 10^3/uL (1.4-6.5); Hemoglobin 11.9 g/dL (13.0-18.0); Mean Corpuscular Hgb 32.7 pg (27.0-31.0); Mean Corpuscular Volume 96.2 fL (80.0-94.0); Mean Platelet Volume 9.1 fL (7.4-10.4); Nucleated Red Blood Cells % 0 % (-); Platelet Count 156 10^3/uL (130-400); Red Blood Cell Count 3.64 10^6/uL (4.70-6.10); Red Cell Dist. Width 13.1 % (11.5-14.5)
[2023-12-23 16:18] LABS: INR 1.14; PT 14.5 Sec (11.4-14.6)
[2023-12-23 16:20] LABS: ALT (SGPT) 15 U/L (0-50); AST (SGOT) 35 U/L (17-59); Albumin 3.5 g/dl (3.5-5.0); Alkaline Phosphatase 128 U/L (38-126); Blood Urea Nitrogen 22 mg/dl (9-20); Calcium 9.3 mg/dl (8.4-10.2); Carbon Dioxide 27 mmol/L (22-30); Chloride 105 mmol/L (98-107); Estimated Creatinine Clearance 82 ml/min; Glucose 126 mg/dl (70-99); Sodium 136 mmol/L (135-145); Total Bilirubin 0.4 mg/dl (0.2-1.3); eGFR > 60.00
[2023-12-23] MEDS: ROXICODONE 5 MG PO ×2 (16:58→23:46)
[2023-12-23] MEDS: DECADRON 10 MG IV (17:00)
--- NOTE | 2023-12-23 17:27 | HPS.HSE ---
Family Physician
-
Family Physician: Gilbert Boo
Chief Complaint
-
slurred speech
History of Present Illness
78 year old with PMH fot prostate ca, diverticulosis presented to us with intermittent slurred speech as well as left hand weakness over the past 2 days. he is been dropping things Denies any vision changes, neck pain, extremity paresthesias. He
does note a subacute gait instability since being diagnosed with COVID-19 in October. Also notes a persistent headache for the past 2 months since that COVID diagnosis. No chest pain or shortness of breath. No prior history of stroke. Patient
denies any headache, dizziness, syncopal episode. Patient denies any fever, chills, chest pain, short of breath. Patient denies any abdominal pain, nausea, vomiting, diarrhea. Patient denies dysuria hematuria.
Head CT obtained with impression of Soft tissue attenuation extra-axial mass in the right hemispheric convexity, new compared to the head CT from 10/09/2023. Given the history of metastatic prostate cancer, a dural-based metastasis or soft tissue
extension of a calvarial metastasis would be the leading considerations. A follow-up brain MRI without and with intravenous contrast can be performed for further evaluation.
Patient started on IV Decadron. Admitting for further management
Medical History
Past Medical History
Past Medical History: Reports Other
Additional Past Medical History:
Bradycardia
ascending colon polyps
Hyperlipidemia
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
Hypertension
.
Past Surgical History: Reports Other
Additional Past Surgical History:
Hernia surgery x 2
Carpal tunnel surgery
Prostatectomy
vertebroplasty
Social History
Tobacco: Non-smoker
Alcohol: None
Drug: None
Personal:
Living: With Family
Family History
Family History: Not pertinent
Allergies / Home Medications
Allergies reflects when Allergies were last updated in [employer].
Home Medications with original date entered in [employer]
Allergy/Medication List:
Allergies
Allergy/AdvReac Type Severity Reaction Status Date / Time
No Known Allergies Allergy Verified 10/09/23 09:38
Home Medications
Calcium 600-Vit D3 500 Softgel 1 tab PO DAILYPRN PRN supplement 03/30/17
atorvastatin 10 mg tablet 10 mg PO Q48H@2200 03/15/21
Glucosamine Chondroitin 1 cap PO Q48H@0800 10/09/23
dexamethasone 1 mg tablet 1 mg PO DAILY 10/09/23
lactulose 10 gram/15 mL oral solution 15 ml PO [id number] PRN constipation 10/09/23
oxycodone 5 mg tablet 5 mg PO Q8H severe pain 10/09/23
therapeutic multivitamin 1 tab PO Q48H@0800 10/09/23
ascorbic acid (vitamin C) 500 mg tablet (Vitamin C) 500 mg PO DAILY 12/04/23
lorazepam 1 mg tablet (Ativan) 1 mg PO DAILY PRN anxiety 12/04/23
zinc gluconate 30 mg tablet 30 mg PO Q72H 12/04/23
Trelstar 1 dose IM [id number] 12/23/23
ibuprofen 200 mg tablet (Advil) 200 mg PO DAILYPRN PRN mild pain 12/23/23
psyllium seed (sugar) oral powder (Metamucil (sugar) oral powder) 1 tbsp PO Q72H 12/23/23
Review of Systems
-
Constitutional: Reports No Symptoms
EENT: Reports No Symptoms
Respiratory: Reports No Symptoms
Cardiac: Reports No Symptoms
Abdomen/GI: Reports No Symptoms
: Reports No Symptoms
Musculoskeletal: Reports No Symptoms
Skin: Reports No Symptoms
Neurological: Reports Headache, Weakness and Other (slurred speech, left arm weakness)
Endocrine: Reports No Symptoms
Hematologic/Lymphatic: Reports No Symptoms
Psych: Reports No Symptoms
Physical Exam
Vital Signs
Vital Signs
Temp Pulse Resp BP Pulse Ox
98.2 F 61 21 167/78 100
12/23/23 14:22 12/23/23 16:45 12/23/23 16:45 12/23/23 16:39 12/23/23 14:22
Physical Exam
General: Well Developed, Well Nourished and No Apparent Distress
HEENT: NormoCephalic, Moist mucous membranes and Atraumatic
Respiratory: Clear
Cardiac: S1/S2 and Regular Rhythm; No Murmur or Rub
GI: Soft, Non Tender, Non Distended and Normal Bowel Sounds; No Organomegaly
Rectal: Deferred by Provider
Musculoskeletal: No Clubbing, No Cyanosis and No Edema
Skin: No Rash
Neuro: AO x 3 and Nonfocal/grossly intact
Psych: Calm
Laboratory Results
-
12/23/23 15:56
12/23/23 15:56
Laboratory Results
PT 14.5 Sec (11.4-14.6) 12/23/23 15:56
INR 1.14 12/23/23 15:56
Total Bilirubin 0.4 mg/dl (0.2-1.3) 12/23/23 15:56
AST 35 U/L (17-59) 12/23/23 15:56
ALT 15 U/L (0-50) 12/23/23 15:56
Alkaline Phosphatase 128 U/L (38-126) H 12/23/23 15:56
Data Reviewed
-
CT Scan: Report Reviewed by me
Impression/Plan
-
# Left hand weakness/slurred speech likely from extra axial mass right frontal region likely metastatic from prostate cancer
-Head CT with impression of Soft tissue attenuation extra-axial mass in the right hemispheric convexity
-IV Decadron 6mg every 12 hours
-MRI with and without contrast
-mRI c spine
-Neurology following patient
-oncology consulted
# Anemia of chronic disease
-Hemoglobin stable at 11.9
-No active bleeding
-Continue to trend
# Hyperlipidemia
-Statin continued
# Anxiety
-Ativan continued
# Chronic pain
-Oxycodone continued
# DVT prophylaxis
-SCD
# CODE STATUS
-Full code
--- NOTE | 2023-12-23 18:01 | W.PN.UPDATE ---
Addendum entered and electronically signed by Jonny Johnson MD 12/23/23 18:16:
Of note neurosurgery was consulted.
Original Note:
Update Note
Progress Note Update
I saw and examined the patient.
The SHAREHOLDER's note was reviewed and I agree with the note.
This note is an addendum to H&P
Comment:
60-year-old male past medical history of prostate cancer with metastasis to the bones presented with left hand weakness. Patient said he is not able to hold anything and severe left hand weakness. Denies any vision problems. Denies any neck pain.
States of ambulatory dysfunction for the past 2 months. Denies any urinary fecal incontinence or saddle anesthesia. Patient was admitted to hospital in October during which time CT head was performed and was negative for lesion. Patient
underwent recent PET scan as outpatient. CT scan showed lesion in the brain. Patient follows with [facility].
General no acute distress
HEENT neck is supple trach is midline
Cardiac S1-S2 regular rate rhythm
Lungs are clear to auscultation bilaterally
Abdomen positive bowel sounds soft nontender nondistended
Extremities no edema
Neuro awake alert and oriented. Left upper extremity weakness. Sensation intact. Extraocular muscles intact. Gait not assessed.
Impression
Brain lesion unclear if new primary versus metastasis
Metastatic prostate cancer to the bones
Plan
CT head with lesion seems to be new compared to last 2 months. Start patient on Decadron 6 every 12 for now
If any activity of seizure noted start patient on Keppra loading and then maintenance dose
MRI brain with and without contrast
Also check MRI cervical spine without contrast
Neurology has been consulted
Will consult oncology as brain lesion with new finding
DVT prophylaxis SCDs
I spent a total of 78 minutes with the patient or on the floor. More than 50% of this time involved counseling and coordination of care.
--- NOTE | 2023-12-23 22:00 | PTCARENOTE ---
Pt arrived to 2S via stretcher from the ED. Pt AAOX3. Head to toe assessment complete. Pt complains of no pain. Pt BP was elevated upon arrival at 184/97. Pts blood pressure was rechecked and 149/85. Pt states his Bp has been elevated lately. Bed in
lowest position and locked. Call swann with in reach.
[2023-12-23] MEDS: LIPITOR 10 MG PO (23:46)
[2023-12-24 00:45] VITALS: BP 149/85
[2023-12-24 03:30] VITALS: BP 154/80
[2023-12-24 05:32] VITALS: BMI 23.7
[2023-12-24 06:18] LABS: Hematocrit 37.9 % (39.0-52.0); Hemoglobin 13.1 g/dL (13.0-18.0); Mean Corp Hgb Conc. 34.6 g/dL (33.0-37.0); Mean Corpuscular Hgb 32.1 pg (27.0-31.0); Mean Corpuscular Volume 92.9 fL (80.0-94.0); Mean Platelet Volume 9.6 fL (7.4-10.4); Platelet Count 181 10^3/uL (130-400); Red Blood Cell Count 4.08 10^6/uL (4.70-6.10); Red Cell Dist. Width 12.6 % (11.5-14.5); White Blood Cell Count 5.5 10^3/uL (4.8-10.8)
[2023-12-24 06:50] LABS: Blood Urea Nitrogen 19 mg/dl (9-20); Calcium 9.7 mg/dl (8.4-10.2); Carbon Dioxide 26 mmol/L (22-30); Chloride 104 mmol/L (98-107); Estimated Creatinine Clearance 93 ml/min; Glucose 135 mg/dl (70-99); Potassium 4.3 mmol/L (3.5-5.1); Sodium 135 mmol/L (135-145); eGFR > 60.00
[2023-12-24 07:05] VITALS: BP 172/92
--- NOTE | 2023-12-24 07:16 | CON.ONC ---
Impression
Impression
Stage IV metastatic prostate cancer with bone mets, recent progression of disease
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
Plan
Plan
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
Await MRI to better clarify the anatomy.
His left-sided symptoms are probably related to this right-sided calvarial mass. Await neurology consultation.
Symptoms seem to have improved with the initiation of Decadron. I suspect the treatment will be palliative radiation as opposed to neurosurgical resection.
Obviously, if the MRI may change the diagnosis depending on the appearance of the mass, we can reconsider above treatment plan. Prostate cancer can metastasize to the brain parenchyma but that is less likely.
Patient is also being set up to receive palliative radiation to the T7 spinal metastasis. He is scheduled to be evaluated at [facility] next week.
Thank you for this consult.
Patient History
History of Present Illness
CC: Slurred speech and left hand weakness
HPI: Patient is a 60-year-old man with a 10-year history of metastatic prostate cancer with bone metastasis and recent disease progression. He recently was found to have rising PSA over the past 9 months (1.8 > 4.5 > 7.7). PSMA PET scan confirmed
disease progression and outpatient plans included focal radiation to the spine as well as initiation of carboplatin + Jevtana systemic chemotherapy.
He has noted for the past couple of months which is new. Relatively easily controlled with Advil. He also had a variety of relatively recent neurologic to his symptoms including slurred speech, left hand shakiness affecting handwriting and
affecting his ability to hold utensils and pen. Also significant change in his handwriting. He denies neck pain or amatory dysfunction. No loss of bowel or bladder function. Head CT scan revealed a 'soft tissue attenuation extra-axial mass in
the right hemispheric convexity, new compared to the head CT from 10/09/2023. Given the history of metastatic prostate cancer, a dural-based metastasis or soft tissue extension of a calvarial metastasis would be the leading considerations.' A brain
MRI has been ordered to assess. The patient was started on dexamethasone 6 mg IV twice daily. Neurology and neurosurgery have both been consulted.
Past-Medical/Surgical History
Past Medical History:
Metastatic prostate cancer, stage IV with bone metastasis
Bradycardia
ascending colon polyps
Hyperlipidemia
Hypertension
Past Surgical History:
Hernia surgery x 2
Carpal tunnel surgery
Prostatectomy
vertebroplasty
Social History
Tobacco: Non-smoker
Alcohol: None
Drug: None
Personal:
Living: With Family
Patient Medication
�Medication �Instructions �Recorded �Confirmed �Last Taken �Type
Calcium 600-Vit D3 500 Softgel 1 tab PO DAILYPRN PRN supplement 03/30/17 12/23/23 2 Days Ago History
~12/21/23
atorvastatin 10 mg tablet 10 mg PO Q48H@2200 High Cholesterol 03/15/21 12/23/23 12/22/23 History
Glucosamine Chondroitin 1 cap PO Q48H@0800 Supplement 10/09/23 12/23/23 12/21/23 History
dexamethasone 1 mg tablet 1 mg PO DAILY Anti-Inflammatory 10/09/23 12/23/23 12/22/23 History
lactulose 10 gram/15 mL oral 15 ml PO [id number] PRN constipation 10/09/23 12/23/23 12/21/23 History
solution
oxycodone 5 mg tablet 5 mg PO Q8H severe pain 10/09/23 12/23/23 12/23/23 02:45 History
therapeutic multivitamin 1 tab PO Q48H@0800 Supplement 10/09/23 12/23/23 12/22/23 History
ascorbic acid (vitamin C) 500 mg 500 mg PO DAILY Supplement 12/04/23 12/23/23 12/22/23 History
tablet (Vitamin C)
lorazepam 1 mg tablet (Ativan) 1 mg PO DAILY PRN anxiety 12/04/23 12/23/23 5 Days Ago History
~12/18/23
zinc gluconate 30 mg tablet 30 mg PO Q72H Supplement 12/04/23 12/23/23 12/21/23 History
Trelstar 1 dose IM [id number] PROSTATE 12/23/23 12/23/23 5 Days Ago History
~12/18/23
ibuprofen 200 mg tablet (Advil) 200 mg PO DAILYPRN PRN mild pain 12/23/23 12/23/23 12/23/23 04:00 History
psyllium seed (sugar) oral powder 1 tbsp PO Q72H Constipation 12/23/23 12/23/23 12/21/23 History
(Metamucil (sugar) oral powder)
Active Medications
Generic Name Dose Route Start Last Admin
Trade Name Freq PRN Reason Stop Dose Admin
Acetaminophen 650 mg 12/23/23 22:09
Acetaminophen 325 Mg Tablet PO 01/20/24 22:08
Q4HPRN PRN
mild pain/PICKARD/temp> 100.4F
Atorvastatin Calcium 10 mg 12/23/23 22:00 12/23/23 23:46
Atorvastatin (Lipitor) 10 Mg Tablet PO 01/20/24 21:59 10 mg
Q48H SAMSON Administration
Bisacodyl 10 mg 12/23/23 22:09
Bisacodyl 10 Mg Rectal Suppository RECTAL 01/20/24 22:08
[id number] PRN
constipation
Dexamethasone Sodium Phosphate 6 mg 12/24/23 08:00
Dexamethasone 4 Mg/Ml 1 Ml Vial IV 01/21/24 07:59
Q12H SAMSON
Lorazepam 1 mg 12/23/23 22:09
Lorazepam 1 Mg Tablet PO 01/20/24 22:08
DAILYPRN PRN
anxiety
Oxycodone HCl 5 mg 12/24/23 00:00 12/23/23 23:46
Oxycodone 5 Mg Regular Release Tablet PO 01/07/24 00:00 5 mg
Q8 SAMSON Administration
Polyethylene Glycol 17 grams 12/23/23 22:09
Polyethylene Glycol Powder 17 Grams Packet PO 01/20/24 22:08
DAILYPRN PRN
constipation
Senna/Docusate Sodium 1 tablet 12/23/23 22:09
Docusate W/Senna (Rose-Colace) Tablet PO 01/20/24 22:08
BIDPRN PRN
constipation
Sodium Chloride 0 flush 12/23/23 23:00
Sodium Chloride 0.9% (Flush) Syringe IV 01/20/24 22:59
PER PROTOCOL SAMSON
Physical Exam
-
General: Well Developed, Well Nourished and No Apparent Distress
HEENT: Negative Jaundice
Cardiology: Normal Sinus Rhythm, S1 and S2
Pulmonary: Clear
GI: Soft
Extremities: No C/C/E
Neurology: Non Focal, No Word Finding Difficulty and Other (Currently no slurred speech)
Labs
Lab Results
WBC 5.5 10^3/uL (4.8-10.8) 12/24/23 05:46
RBC 4.08 10^6/uL (4.70-6.10) L 12/24/23 05:46
Hgb 13.1 g/dL (13.0-18.0) 12/24/23 05:46
Hct 37.9 % (39.0-52.0) L 12/24/23 05:46
MCV 92.9 fL (80.0-94.0) 12/24/23 05:46
MCH 32.1 pg (27.0-31.0) H 12/24/23 05:46
MCHC 34.6 g/dL (33.0-37.0) 12/24/23 05:46
RDW 12.6 % (11.5-14.5) 12/24/23 05:46
Plt Count 181 10^3/uL (130-400) 12/24/23 05:46
MPV 9.6 fL (7.4-10.4) 04/24/24 05:46
Abs Immat Gran (auto) 0.0 10^3/uL (0-0.05) 12/23/23 15:56
Absolute Neuts (auto) 4.4 10^3/uL (1.4-6.5) 12/23/23 15:56
Absolute Lymphs (auto) 0.8 10^3/uL (1.2-3.4) L 12/23/23 15:56
Absolute Monos (auto) 0.6 10^3/uL (0.1-0.6) 12/23/23 15:56
Absolute Eos (auto) 0.1 10^3/uL (0-0.7) 12/23/23 15:56
Absolute Basos (auto) 0.0 10^3/uL (0-0.2) 12/23/23 15:56
Immature Gran % 0.3 % (0-0.5) 12/23/23 15:56
Neutrophils % 72.9 % (42.2-75.2) 12/23/23 15:56
Lymphocytes % 13.2 % (20.5-51.1) L 12/23/23 15:56
Monocytes % 10.7 % (1.7-9.3) H 12/23/23 15:56
Eosinophils % 2.2 % (0-6) 12/23/23 15:56
Basophils % 0.7 % (0-2) 12/23/23 15:56
Creatinine 0.7 mg/dL (0.7-1.3) 12/24/23 05:46
Vital Signs
Vital Signs
Temp Pulse Resp BP Pulse Ox
98.2 F 61 16 154/80 96
12/24/23 03:30 12/24/23 03:30 12/24/23 03:30 12/24/23 03:30 12/24/23 03:30
--- NOTE | 2023-12-24 08:17 | CON.NEURO4 ---
Addendum entered and electronically signed by Chai Jerome MD 12/24/23 13:54:
I saw and evaluated the patient I reviewed the note by Violet Deras agree with the findings the following comments:
78-year-old left-handed male with a past medical history of prostate cancer with bone metastases presented hospital with intermittent speech difficulties as well as left hand weakness. He has also had significant headache for the past few months.
He has had multiple doses of radiation in the past due to osseous metastases as well as hormonal therapy and chemotherapy for prostate cancer which has been going on for about 10 years. Has had finding in November of T7 mass to the spine.
Neurologic examination shows normal mental status, normal cranial nerves, no appreciable weakness in coordination of the hands or arms. Normal finger-nose testing bilaterally.
CT head noncontrast showing convex mostly isodense mass on the right frontal lobe most suspicious for dural metastasis, no hemorrhage or acute infarct seen.
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
Recommendations
-Would switch dexamethasone to p.o. continue on 4 mg twice daily
-Check MRI of the brain and cervical spine with and without contrast
-Oncology evaluation noted he follows with Dr. Ruvalcaba for most of his oncologic care
-Agree with neurosurgery consultation and anticipate need for radiation therapy eventually
Will follow up after MRI's
Original Note:
Consultation - Neurology 4
-
CONSULTING PHYSICIAN: Mary Jerome MD
REFERRING PHYSICIAN: Hospitalists/CONNIE Almendarez
DICTATED BY: CONNIE Landry
DATE/TIME OF REQUEST: 12/23/23
DATE/TIME OF CONSULTATION: 12/24/23
Reason for Consultation: Intracranial Mass
History of Present Illness:
This is a 78-year-old left-handed male with a PMH of prostate cancer with bone metastases who has presented to the hospital on 12/23/23 with report of intermittent dysarthria and left hand weakness. Patient reports that three days ago on 12/21/23 he
was talking on the phone when suddenly he couldn't understand what he was saying. This lasted for about 10 minutes before improving. Since then he has intermittently 'tripped up' on words. He also notes that starting three days ago he developed left
hand weakness, his hand writing has become illegible, he was dropping utensils, and couldn't feel objects in his hand. This has improved and today it feels back to his baseline. CT head was obtained on arrival in the ER and demonstrates a right
hemispheric soft tissue convexity concerning for a dural-based or calvarial metastasis.
Patient reports that for the past 4 months he has had a daily left frontal headache that often wakes him from his sleep at night. He rates it a 6/10, aching/stabbing sensation. He takes one Advil with relief of pain. He denies any previous history
of headaches or migraines. He endorses a 20 year history of peripheral neuropathy in his feet and gait dysfunction requiring use of a cane or walker starting two years ago after drastic weight loss. In October 2023 he had a syncopal event getting
out of bed to walk to the bathroom he lost consciousness and woke up on the floor. He was evaluated here in the ER and was positive for covid. CT head was obtained on 10/09/23 and was negative at that time. Since having covid he reports that his legs
having been weaker and his gait is worse, he has been going to physical therapy. Two weeks ago he started having left-sided mid back pain. His PSA had been on the rise and he had a PET scan on 12/15/23 which demonstrates increased bone mets including
a T7 mass. He was supposed to start chemo/radiation for that this week. He denies any dizziness, vision changes, swallowing difficulty, numbness, nausea, chest pain, palpitations, and shortness of breath.
Past Medical History: Prostate cancer with osseous mets, diverticulosis
Surgical History: Prostatectomy, hernia repair
Family History: Reviewed and noncontributory.
Social History: Denies tobacco, alcohol, and illicit drug use.
Allergies: No known allergies.
Home Medications: See below.
Review of Symptoms:
Patient denies any fever, headache, chest pain, shortness of breath, GI or symptoms.
�Per the HPI.�All systems are reviewed negative except above.
Physical Exam:
The patient is afebrile, abdomen is nondistended, breathing is unlabored, skin is warm and dry, no edema.
Neurologic Examination:
The patient is awake, alert and oriented x 3. He is able to follow commands and answer questions appropriately. There is no aphasia. There is mild intermittent dysarthria. On cranial nerve assessment, pupils are 3 mm bilateral, round and reactive
to light and accommodation. Visual schreiber are full. Extraocular movements are intact. Facial sensations are intact and bilaterally symmetrical, there is no facial asymmetry. Hearing is intact bilaterally to normal conversation volume. Tongue palate
and uvula are midline. Sternocleidomastoid strengths are full bilaterally. Motor strengths are 5/5 bilateral upper and lower extremities on medical research [place] scale. There is no drift or involuntary movement noted. Deep tendon reflexes are 1+
bilateral upper and lower extremities and Babinski is absent bilaterally. There was no extinction noted on double simultaneous stimulation. Coordination is intact by finger to nose bilaterally.
Lab Results: See below.
Neuro Imaging:
1. CT Head 12/23/23: Soft tissue attenuation extra-axial mass in the right hemispheric convexity, new compared to the head CT from 10/09/2023. Given the history of metastatic prostate cancer, a dural-based metastasis or soft tissue extension of a
calvarial metastasis would be the leading considerations. A follow-up brain MRI without and with intravenous contrast can be performed for further evaluation.
Differentials for the patient's presentation include:
1. Prostate cancer with bone metastases including a T7 mass. CT head demonstrating a new right hemispheric soft tissue convexity concerning for brain metastasis. Brain mass likely causing speech changes and left hand incoordination/weakness.
Patient has the following risk factors for their symptoms: Prostate cancer with bone mets
Recommendations:
-MRI brain and cervical spine with and w/o contrast pending.
-Continue dexamethasone 4mg PO q12hrs.
-Goal normoglycemia, monitor blood sugars while on increased dose of steroids.
-PT/OT/ST evaluations.
-DVT prophylaxis.
-Neurosurgery and oncology consultation.
Discussed patient care with: Dr. Jerome, the patient
Vital Signs and Labs
-
Vital Signs and Labs:
Vital Signs
Temp Pulse Resp BP Pulse Ox
97.8 F 61 17 172/92 94
12/24/23 07:05 12/24/23 07:05 12/24/23 07:05 12/24/23 07:05 12/24/23 07:05
Lab Results
12/24/23 05:46
12/24/23 05:46
PT 14.5 Sec (11.4-14.6) 12/23/23 15:56
INR 1.14 12/23/23 15:56
Sodium 135 mmol/L (135-145) 12/24/23 05:46
Potassium 4.3 mmol/L (3.5-5.1) 12/24/23 05:46
BUN 19 mg/dl (9-20) 12/24/23 05:46
Glucose 135 mg/dl (70-99) H 12/24/23 05:46
Calcium 9.7 mg/dl (8.4-10.2) 12/24/23 05:46
Medications
-
Active Medications
Generic Name Dose Route Start Last Admin
Trade Name Freq PRN Reason Stop Dose Admin
Acetaminophen 650 mg 12/23/23 22:09
Acetaminophen 325 Mg Tablet PO 01/20/24 22:08
Q4HPRN PRN
mild pain/PICKARD/temp> 100.4F
Atorvastatin Calcium 10 mg 12/23/23 22:00 12/23/23 23:46
Atorvastatin (Lipitor) 10 Mg Tablet PO 01/20/24 21:59 10 mg
Q48H SAMSON Administration
Bisacodyl 10 mg 12/23/23 22:09
Bisacodyl 10 Mg Rectal Suppository RECTAL 01/20/24 22:08
[id number] PRN
constipation
Dexamethasone 4 mg 12/24/23 20:00
Dexamethasone 4 Mg Tablet PO 01/21/24 19:59
Q12 SAMSON
Lorazepam 1 mg 12/23/23 22:09
Lorazepam 1 Mg Tablet PO 01/20/24 22:08
DAILYPRN PRN
anxiety
Oxycodone HCl 5 mg 12/24/23 00:00 12/24/23 09:19
Oxycodone 5 Mg Regular Release Tablet PO 01/07/24 00:00 5 mg
Q8 SAMSON Administration
Polyethylene Glycol 17 grams 12/23/23 22:09
Polyethylene Glycol Powder 17 Grams Packet PO 01/20/24 22:08
DAILYPRN PRN
constipation
Senna/Docusate Sodium 1 tablet 12/23/23 22:09
Docusate W/Senna (Rose-Colace) Tablet PO 01/20/24 22:08
BIDPRN PRN
constipation
Sodium Chloride 0 flush 12/23/23 23:00 12/24/23 09:20
Sodium Chloride 0.9% (Flush) Syringe IV 01/20/24 22:59 2 flush
PER PROTOCOL SAMSON Administration
Home Medications
�Medication �Instructions �Recorded
Calcium 600-Vit D3 500 Softgel 1 tab PO DAILYPRN PRN supplement 03/30/17
atorvastatin 10 mg tablet 10 mg PO Q48H@2200 High Cholesterol 03/15/21
Glucosamine Chondroitin 1 cap PO Q48H@0800 Supplement 10/09/23
dexamethasone 1 mg tablet 1 mg PO DAILY Anti-Inflammatory 10/09/23
lactulose 10 gram/15 mL oral 15 ml PO [id number] PRN constipation 10/09/23
solution
oxycodone 5 mg tablet 5 mg PO Q8H severe pain 10/09/23
therapeutic multivitamin 1 tab PO Q48H@0800 Supplement 10/09/23
ascorbic acid (vitamin C) 500 mg 500 mg PO DAILY Supplement 12/04/23
tablet (Vitamin C)
lorazepam 1 mg tablet (Ativan) 1 mg PO DAILY PRN anxiety 12/04/23
zinc gluconate 30 mg tablet 30 mg PO Q72H Supplement 12/04/23
Trelstar 1 dose IM [id number] PROSTATE 12/23/23
ibuprofen 200 mg tablet (Advil) 200 mg PO DAILYPRN PRN mild pain 12/23/23
psyllium seed (sugar) oral powder 1 tbsp PO Q72H Constipation 12/23/23
(Metamucil (sugar) oral powder)
[2023-12-24] MEDS: DECADRON 6 MG IV (09:19)
[2023-12-24] MEDS: ROXICODONE 5 MG PO ×3 (09:19→23:14)
[2023-12-24] MEDS: FLUSH (NSS) 2 FLUSH IV (09:20)
[2023-12-24 09:58] VITALS: PULSE 64; O2SAT 94
--- NOTE | 2023-12-24 11:36 | W.PN.HOSP.TC ---
Today's Communication/Plan
-
Await MRI imaging
Continue with steroids in the interim
Assessment / Plan
Assessment / Plan
# Left hand weakness/slurred speech likely from extra axial mass right frontal region likely brain lesion (unknown if new primary versus metastasis as prostate with low probability of mets to brain)
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
-Head CT with impression of Soft tissue attenuation extra-axial mass in the right hemispheric convexity
-IV Decadron 6mg every 12 hours
-MRI with and without contrast
-MRI Cervical spine
-Await further input from neurosurgery.
-If any activity of seizure noted start patient on Keppra loading and then maintenance dose
-Appreciate oncology and neurology assistance
# Anemia of chronic disease
-Hemoglobin stable at 11.9
-No active bleeding
-Continue to trend
# Hyperlipidemia
-Statin continued
# Anxiety
-Ativan continued
# Chronic pain
-Oxycodone continued
# DVT prophylaxis
-SCD
# CODE STATUS
-Full code
PT/OT
Anticipated Discharge: Within 24 hours
Subjective/Interval History
-
Date of Service: December 24, 2023
States of improvement in left upper extremity weakness
Objective Data
-
Labs:
Laboratory Results
12/24/23
05:46
WBC 5.5
Hgb 13.1
Hct 37.9 L
Plt Count 181
Sodium 135
Potassium 4.3
Chloride 104
Carbon Dioxide 26
BUN 19
Creatinine 0.7
Glucose 135 H
Calcium 9.7
Vital Signs:
Vital Signs
Temp Pulse Resp BP Pulse Ox
97.8 F 61 17 172/92 94
12/24/23 07:05 12/24/23 07:05 12/24/23 07:05 12/24/23 07:05 12/24/23 07:05
I&O
12/23/23 12/24/23 12/25/23
06:59 06:59 06:59
Intake Total 240 / 240
Output Total 480 / 480
Balance -240 / -240
Physical Exam
-
General: Well Developed and No Apparent Distress
HEENT: Normocephalic, Atraumatic and Moist Mucous Membranes
Respiratory: Clear to Auscultation
Cardiac: Regular Rhythm and S1/S2; Negative Murmur, Rub or Gallop
GI: Soft, Nontender, Nondistended and Normal Bowel Sounds; Negative Organomegaly
Rectal: Deferred by Provider
Musculoskeletal: No Clubbing, No Cyanosis and No Edema
Skin: Negative Rash
Neuro: Awake, AO x 3, No Motor Deficits and Nonfocal/Grossly Intact
Psych: Calm
[2023-12-24 12:12] LABS: Glycohemoglobin (HgbA1c) 5.9 % (4.0-5.6)
[2023-12-24] MEDS: ATIVAN 1 MG PO (13:44)
--- NOTE | 2023-12-24 14:08 | PTCARENOTE ---
Addendum entered by Freida Muniz RN 12/24/23 14:52:
to MRI via stretcher with volunteer.
Original Note:
pt medicated for anxiety per MAR prior to MRI.
--- NOTE | 2023-12-24 14:25 | CON.NS ---
Consultation
-
Date/Time Consultation Performed: 12/24/5023; 14:30
Performing Provider: Zachary
Chief Complaint
History of Present Illness
This is a neurosurgical consultation on a 78-year-old gentleman who has a past medical history significant for prostate cancer, with recent evidence of progression of disease, who presented with intermittent slurred speech, as well as left hand
weakness over the last several days. He is reported to have been dropping things. He has also noticed significant subacute gait instability after presenting in October 2023 with COVID-19. At that time, he presented after a fall. He also has
noted a headache for the last several months since the COVID diagnosis. He had a noncontrast head CT which demonstrated a extra-axial lesion over the right frontal temporal lobe, which was new compared with the previous head CT. Given this,
neurosurgery consulted.
Of note, the patient reports that since he was discharged, he has had 2 falls at home, at which point he did hit his head. He is not on any anticoagulants, antiplatelet agents. Since he hit his head, which was sometime in mid October onto a
wooden desk, he has had progressive headaches. He also had an additional fall at which time he did not have his walker nearby, and he also hit his head to the point that his glasses broke.
Review of Systems
-
10 point review of systems including constitutional, ENT, cardiovascular, respiratory, GI, , neurologic, endocrine, hematologic, musculoskeletal was negative except for stated in HPI.
Medication and Allergies
Home Medications
Home Medications
�Medication �Instructions �Recorded
Calcium 600-Vit D3 500 Softgel 1 tab PO DAILYPRN PRN supplement 03/30/17
atorvastatin 10 mg tablet 10 mg PO Q48H@2200 High Cholesterol 03/15/21
Glucosamine Chondroitin 1 cap PO Q48H@0800 Supplement 10/09/23
dexamethasone 1 mg tablet 1 mg PO DAILY Anti-Inflammatory 10/09/23
lactulose 10 gram/15 mL oral 15 ml PO [id number] PRN constipation 10/09/23
solution
oxycodone 5 mg tablet 5 mg PO Q8H severe pain 10/09/23
therapeutic multivitamin 1 tab PO Q48H@0800 Supplement 10/09/23
ascorbic acid (vitamin C) 500 mg 500 mg PO DAILY Supplement 12/04/23
tablet (Vitamin C)
lorazepam 1 mg tablet (Ativan) 1 mg PO DAILY PRN anxiety 12/04/23
zinc gluconate 30 mg tablet 30 mg PO Q72H Supplement 12/04/23
Trelstar 1 dose IM [id number] PROSTATE 12/23/23
ibuprofen 200 mg tablet (Advil) 200 mg PO DAILYPRN PRN mild pain 12/23/23
psyllium seed (sugar) oral powder 1 tbsp PO Q72H Constipation 12/23/23
(Metamucil (sugar) oral powder)
Allergies
Allergies
Allergy/AdvReac Type Severity Reaction Status Date / Time
No Known Allergies Allergy Verified 10/09/23 09:38
Physical Exam
-
Exam:
Awake, alert, no apparent distress.
Speech is fluent, comprehension intact, repetition is normal.
Cranial nerves II through XII are grossly intact.
Motor: 5/5 strength of bilateral upper and lower extremities with no evidence of pronator drift.
Gait. Not tested.
Head is normocephalic, atraumatic.
Neck is supple.
Breathing is nonlabored.
Cardiac: Regular rate and rhythm
Abdomen is soft
Extremities are warm
Noncontrast head CT performed on 12/23/2023 demonstrates biconvex lesion overlying the right frontal lobe which appears to be extra-axial in nature. There is no obvious evidence of underlying vasogenic edema. Lesion appears to be isodense in
nature. Differential diagnosis could be neoplasm versus focal evolving extra-axial hematoma.
Problems
-
Problem Status Onset Code
Left hand weakness R29.898
Intracranial mass R90.0
Assessment / Plan
-
This is a 78-year-old gentleman with a past medical history significant for metastatic prostate cancer, who presents with several day history of left hand weakness and slurred speech. He had a noncontrast head CT performed and October 2023, when
he presented after sustaining a fall, and was found to have COVID. This head CT was negative. This extra-axial right frontal lesion is new compared with previous head CT. Differential diagnosis includes neoplasm versus extra-axial fluid
collection/subacute hematoma. Patient does report that he has had several falls over the last couple of months, and that his headache started after he hit his head mid October.
Recommend MRI of brain with and without contrast to better evaluate.
[2023-12-24 16:45] VITALS: BP 161/79
[2023-12-24 19:02] LABS: Hepatitis C Antibody Negative (Negative)
[2023-12-24] MEDS: DECADRON 4 MG PO (20:52)
[2023-12-24 23:01] VITALS: BP 151/70
[2023-12-25 06:40] LABS: Hematocrit 36.3 % (39.0-52.0); Hemoglobin 12.4 g/dL (13.0-18.0); Mean Corp Hgb Conc. 34.2 g/dL (33.0-37.0); Mean Corpuscular Hgb 31.9 pg (27.0-31.0); Mean Corpuscular Volume 93.3 fL (80.0-94.0); Mean Platelet Volume 9.6 fL (7.4-10.4); Platelet Count 186 10^3/uL (130-400); Red Blood Cell Count 3.89 10^6/uL (4.70-6.10); White Blood Cell Count 10.3 10^3/uL (4.8-10.8)
[2023-12-25 07:05] LABS: Blood Urea Nitrogen 29 mg/dl (9-20); Calcium 9.5 mg/dl (8.4-10.2); Carbon Dioxide 26 mmol/L (22-30); Chloride 104 mmol/L (98-107); Estimated Creatinine Clearance 93 ml/min; Glucose 128 mg/dl (70-99); Potassium 4.4 mmol/L (3.5-5.1); Sodium 135 mmol/L (135-145); eGFR > 60.00
[2023-12-25 07:15] VITALS: BP 176/83
[2023-12-25] MEDS: APRESOLINE 10 MG IV (07:47)
[2023-12-25] MEDS: ROXICODONE 5 MG PO (07:47)
[2023-12-25] MEDS: DECADRON 4 MG PO (07:47)
[2023-12-25] MEDS: FLUSH (NSS) 2 FLUSH IV (07:48)
--- NOTE | 2023-12-25 07:48 | W.PN.NEURO.1 ---
Today's Communication / Plan
-
-Would continue the current steroid dose 4 mg dexamethasone twice daily, discussed side effects to watch for and can consider decreasing dose after 6-8 weeks
-Oncology and neurosurgical inputs appreciated
-No further workup as inpatient
Neuro Assessment/Plan
Assessment
78-year-old man with history of metastatic prostate cancer presented to hospital because of difficulty with speech and left hand and arm weakness
MRI brain demonstrating metastatic disease with dural metastases which is larger on the right parietal and temporal area which is the most likely cause of patient's symptoms of speech difficulty and left hand and arm weakness. Small area of other
metastatic dural disease on the left side of the skull as well.
Cervical spine MRI with no evidence of metastatic disease
Patient symptoms have improved with regard to speech and left hand and wrist function
Options for treatment will be steroids to help minimize symptoms, may produce some symptomatic relief but decreasing surrounding edema from the metastasis. Additionally radiation will be an option. Surgical resection potentially an option but will
depend on patient's preferences and risk/benefits.
Subjective/Objective
Subjective Data
Date of Service: December 25, 2023
No acute events, discussed the findings on brain MRI and treatments, medications, quality of life
Objective Data
Vital Signs
Temp Pulse Resp BP Pulse Ox
98.1 F 55 17 176/83 97
12/25/23 07:15 12/25/23 07:15 12/25/23 07:15 12/25/23 07:15 12/25/23 07:15
Lab Results
12/25/23 05:31
12/25/23 05:31
PT 14.5 Sec (11.4-14.6) 12/23/23 15:56
INR 1.14 12/23/23 15:56
Sodium 135 mmol/L (135-145) 12/25/23 05:31
Potassium 4.4 mmol/L (3.5-5.1) 12/25/23 05:31
BUN 29 mg/dl (9-20) H 12/25/23 05:31
Glucose 128 mg/dl (70-99) H 12/25/23 05:31
Calcium 9.5 mg/dl (8.4-10.2) 12/25/23 05:31
Patient Allergies
No Known Allergies Allergy (Verified 10/09/23 09:38)
Review of Systems
-
History Source: Patient
All other systems: Reviewed and negative
Constitutional: No Symptoms
EENT: No Symptoms Reported
Respiratory: No Symptoms
Cardiac: No Symptoms
Abdomen/GI: No Symptoms
Genitourinary: No Symptoms
Musculoskeletal: No Symptoms
Skin: No Symptoms
Neuro: Weakness and Speech Problem
Endocrine: No Symptoms
Hematologic / Lymphatic: No Symptoms
Allergy / Immunology: No Symptoms
Physical Exam
-
General: Comfortable
Eyes: No Ptosis
HEENT: Normocephalic
Neck: No Bruits Bilaterally
Respiratory: Clear to Auscultation
Cardiac: Regular Rhythm
GI: Normal Bowel Sounds
Skin: Unremarkable
Extremities: No Clubbing
Psych: Unremarkable
Extended Neurological Exam
Mood & Affect: Mood Unremarkable and Affect Unremarkable
Attention Span & Concentration: Awake, Alert and Interactive
Memory: Unremarkable
Tremor: Hand Tremor Absent
Involuntary Movement: None
Speech: Quality Unremarkable and Quantity Unremarkable; Negative Expressive Aphasia, Receptive Aphasia or Dysarthric
Cranial Nerve II: Left Eye: Pupillary Reactivity Unremarkable and Pupillary Size Unremarkable
Cranial Nerve II: Right Eye: Pupillary Reactivity Unremarkable and Pupillary Size Unremarkable
Cranial Nerves III, IV, : Extraocular Movement: Extraocular Movement Full in all Directions
Cranial Nerve VII: Facial Symmetry: Normal Facial Symmetry
Muscle Strength, Overall: Full Throughout and Other (Left arm hand wrist and finger flexion normal)
Pronator Drift: No Drift in Upper Extremities
Touch Sensation: Unremarkable
Coordination: Tduoli-[id number] Testing Unremarkable
Data Reviewed
-
CT Head: Report Reviewed and Image Reviewed
MRI Head: Report Reviewed and Image Reviewed
MRI Cervical Spine: Report Reviewed and Image Reviewed
Labs: Report Reviewed
[2023-12-25] MEDS: PROCARDIA XL (EXTENDED RELEASE) 30 MG PO (08:17)
--- NOTE | 2023-12-25 10:18 | W.PN.ONC ---
Today's Communication / Plan
-
MRI appears to reflect right osseous metastases involving the right posterior/central calvarium with a small component of extraosseous extension resulting in extrinsic compression of the cortex
Left-sided symptoms
Would continue steroids
Await neurosurgical opinion of finding suspect XRT most appropriate
Patient is also being set up to receive palliative radiation to the T6 spinal metastasis.
He is scheduled to be evaluated at [facility] with/overlapping field
Impression
Impression
Stage IV metastatic prostate cancer with bone mets, recent progression of disease
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
Systemic chemotherapy for disease pending
Subjective/Objective
Subjective/Objective
Speech changes improved with steroid
Vital Signs:
Vital Signs
Temp Pulse Resp BP Pulse Ox
98.1 F 63 17 163/73 97
12/25/23 07:15 12/25/23 08:17 12/25/23 07:15 12/25/23 08:17 12/25/23 07:45
PE:
Alert oriented improving speech
HEENT no scleral icterus
Heart regular
Lungs with decreased in the bases extremities without pretibial edema
Lab Results:
Laboratory Data
WBC 10.3 10^3/uL (4.8-10.8) 12/25/23 05:31
Hgb 12.4 g/dL (13.0-18.0) L 12/25/23 05:31
Plt Count 186 10^3/uL (130-400) 12/25/23 05:31
PT 14.5 Sec (11.4-14.6) 12/23/23 15:56
INR 1.14 12/23/23 15:56
eGFR > 60.00 12/25/23 05:31
--- NOTE | 2023-12-25 11:20 | CM ---
Addendum entered by Nikolay Chacko 12/25/23 13:20:
Discharge order is noted and home PT recommended.
CM met with pt again and pt's spouse presents at bedside. Pt reports he has a walker at home and [facility] home [facility]. Pt has been notified that VN services recommended again and pt expressed his agreement.
A referral to [facility] made.
Please fax discharge instructions to [facility] at [phone].
D/C plan: home with VN and family support. Spouse to transport.
Original Note:
CM following re: discharge planning.
Reviewed pt's chart, met with pt. Pt's vocational psychologist at bedside and pt preferred his vocational psychologist be presented during interview.
Pt is a 78 year old male, admitted with primary dx of Left hand weakness/slurred speech.
Pt reports he lives with spouse in a [address] [facility], has 2 supportive sons. pt described himself as independent in all areas [employer]. No DME, VN or SNF history.
IMM reviewed, placed in chart, pt has a copy
PCP: Gilbert Boo
Pharmacy: [facility].
D/C plan: home with anticipated no needs. Spouse to transport at discharge.
CM will follow with discharge plan updates as hospitalization progresses
--- NOTE | 2023-12-25 12:29 | W.PN.HOSP.TC ---
Addendum entered and electronically signed by Jonny Johnson MD 12/25/23 16:15:
Opioid use with dependence
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
Original Note:
Today's Communication/Plan
-
bp meds
cont steroids
op f/u onc/rad-onc
Assessment / Plan
Assessment / Plan
# Left hand weakness/slurred speech likely from extra axial mass right frontal region due to skull osseous mets
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
-Head CT with impression of Soft tissue attenuation extra-axial mass in the right hemispheric convexity
-per neuro and oncology to continue with decadron 4mg q12h.
-MRI with and without contrast
-MRI Cervical spine noted
-start on ppi as will be on steroids.
-probably will require XRT to skull too. Plan is already in motion [facility] [place] for [place] treatment.
-Appreciate neurology and neurosurgery input as well.
#Primary HTN-Uncontrolled (elevated for sometime)
-started procardia
# Anemia of chronic disease
-Hemoglobin stable
-No active bleeding
-Continue to trend
# Hyperlipidemia
-Statin continued
# Anxiety
-Ativan continued
# Chronic pain
-Oxycodone continued
# DVT prophylaxis
-SCD
# CODE STATUS
-Full code
PT/OT-Home health.
d/w with oncology-XRT to skull. OP f/u. okay to dc.
More than 30 minutes spent in discharge including
Final examination of the patient
Summarizing hospital stay
Instructions for continuing care to all relevant caregivers
Preparation of discharge records, prescriptions, and referral forms
Total time spent (in minutes): 50
Anticipated Discharge: Today
Subjective/Interval History
-
Date of Service: December 25, 2023
Improvement in LUE weakness and speech
gave patient MRI brain results and explained in details the finding
Objective Data
-
Labs:
Laboratory Results
12/25/23
05:31
WBC 10.3
Hgb 12.4 L
Hct 36.3 L
Plt Count 186
Sodium 135
Potassium 4.4
Chloride 104
Carbon Dioxide 26
BUN 29 H
Creatinine 0.7
Glucose 128 H
Calcium 9.5
Vital Signs:
Vital Signs
Temp Pulse Resp BP Pulse Ox
98.1 F 63 17 163/73 97
12/25/23 07:15 12/25/23 08:17 12/25/23 07:15 12/25/23 08:17 12/25/23 07:45
I&O
12/24/23 12/25/23 12/26/23
06:59 06:59 06:59
Intake Total 240 / 240 600 / 600
Output Total 480 / 480 905 / 905
Balance -240 / -240 -305 / -305
Physical Exam
-
General: Well Developed and No Apparent Distress
HEENT: Normocephalic, Atraumatic and Moist Mucous Membranes
Respiratory: Clear to Auscultation
Cardiac: Regular Rhythm and S1/S2; Negative Murmur, Rub or Gallop
GI: Soft, Nontender, Nondistended and Normal Bowel Sounds; Negative Organomegaly
Rectal: Deferred by Provider
Musculoskeletal: No Clubbing, No Cyanosis and No Edema
Skin: Negative Rash
Neuro: Awake, AO x 3, No Motor Deficits and Nonfocal/Grossly Intact
Psych: Calm
--- NOTE | 2023-12-25 12:39 | W.DCSUMMARY ---
Discharge Summary
Discharge Data
Date of Admission: 12/23/23
Date of Discharge: 12/25/23
-
Pending Results: No
Hospital Course
78-year-old male past medical history of prostate cancer with metastasis to the bones who is presenting with left upper extremity weakness and slurred speech. Patient underwent CT head which was abnormal with concern for malignancy. Patient
underwent MRI of the brain Osseous metastatic disease involving the posterolateral right calvarium and posterior central/left paracentral parietal calvarium. Right posterolateral calvarial lesion is associated with a prominent extra osseous
component which extends along the inner table; this extra axial mass results in extrinsic compression of the adjacent cortex, with enhancing linear components along the dural surface that extends slightly into the adjacent cerebral sulci. Parietal
calvarial metastatic lesion has a small extraosseous component extending beyond the outer table. Patient was on IV Decadron which was transitioned to 4 mg every 12. Patient was seen by oncology and neurology and neurosurgery. Patient with osseous
metastatic lesion. Patient with significant improvement in symptoms. Patient was seen by PT and OT. Patient be discharged with p.o. steroids. Patient also with elevated blood pressure which has been ongoing prior to arrival. Patient was started
on Procardia with outpatient PCP follow-up. Patient will need to go outpatient school radiation. Patient already has radiation scheduled for scapula at [facility]. Patient was given copy of MRI results. Case was discussed with patient primary
oncology Dr. Ruvalcaba on day of discharge and he agreed.
Discharge Plan
-
Patient Disposition: Home with Home Care
Discharge Diagnosis/Procedures: Left upper extremity weakness and difficulty with speech likely secondary to osseous metastasis to skull
Primary hypertension uncontrolled
Condition: Fair
Diet: Regular
Activity: With assistance and As tolerated
Driving Restrictions: As prior to admission
Other Services: VN
Referrals:
Lukasz Ruvalcaba, [Active] - in one to two weeks
Gilbert Boo MD [Family Provider] - in less than 1 week (Follow-up for blood pressure management)
Prescriptions:
New
dexamethasone 4 mg Tablet
4 mg PO Q12 30 Days Qty: 60 0RF
nifedipine 30 mg Tablet Extended Release
30 mg PO DAILY Qty: 30 0RF
pantoprazole 40 mg Tablet,Delayed Release (Dr/Ec)
40 mg PO DAILY 30 Days Qty: 30 0RF
Continued
Calcium 600-Vit D3 500 Softgel
1 tab PO DAILYPRN PRN (Reason: supplement)
Patient Comments:
atorvastatin 10 MG tablet
10 mg PO Q48H@2200
Patient Comments:
therapeutic multivitamin Tablet
1 tab PO Q48H@0800
oxycodone 5 mg Tablet
5 mg PO Q8H
lactulose 10 gram/15 mL Solution
15 ml PO [id number] PRN (Reason: constipation)
Glucosamine Chondroitin
1 cap PO Q48H@0800
zinc gluconate 30 mg Tablet
30 mg PO Q72H
ascorbic acid (vitamin C) [Vitamin C] 500 mg Tablet
500 mg PO DAILY
lorazepam [Ativan] 1 mg Tablet
1 mg PO DAILY PRN (Reason: anxiety)
Patient Comments:
12/23/2023, pt. uses prior to CT, MRI, or PET scans.
ibuprofen [Advil] 200 mg Tablet
200 mg PO DAILYPRN PRN (Reason: mild pain)
Metamucil (sugar) Powder
1 tbsp PO Q72H
Trelstar
1 dose IM [id number]
Patient Comments:
12/23/2023, pt. gets through [facility].
Discontinued
dexamethasone 1 mg Tablet
1 mg PO DAILY
Discharge Orders:
Discharge Patient (As Directed); Ordered 12/25/23
Ordered By: Jonny Johnson
Discharge Date and Time
Print Language: KISWAHILI
--- NOTE | 2023-12-25 12:42 | PN.CDI ---
CDI
- -
CDI:
Physician Documentation Request
Admit Date: 12/23/23 18:02
Dear Doctor Elizabeth,
Clinical Indicators:
Patient admitted with left hand weakness/slurred speech.
12/22 Decadron IV ordered, change to po 12/23.
12/24 Neurology PN, 'dural metastases which is larger on the right parietal and temporal area which is the most likely cause of patient's symptoms of speech difficulty and left hand and arm weakness:
MRI Report, 'this extra axial mass results in extrinsic compression of the adjacent cortex, with enhancing linear components along the dural surface that extends slightly into the adjacent cerebral sulci.'
Please indicate in your progress notes if you are in agreement that the above diagnosis is valid for this patient:
Cerebral compression is a valid diagnosis
Cerebral compression is not a valid diagnosis for this patient
Other, please specify
Use of terms such as suspected, likely, concern for, or probable are acceptable for a diagnosis that is being evaluated, monitored or treated as if it exists and can be coded in the inpatient setting, when documented at the time of discharge.
Thank you,
MARYAM Washington RN
CDI Specialist
available via tiger text
Please use your independent medical judgment in providing your response.
--- NOTE | 2023-12-25 12:59 | PN.CDI ---
CDI
- -
CDI:
Physician Documentation Request
Admit Date: 12/23/23 18:02
Dear Doctor Elizabeth,
Clinical Indicators:
Patient admitted with left hand weakness/slurred speech.
PMH includes prostate cancer with metastasis to the bone
Home medications include Oxycodone 5 mg tablet 5 mg PO Q8
12/24 PN, 'Chronic pain-Oxycodone continued'
Please clarify the appropriate diagnosis, if significant, that supports the above medication usage:
Opioid use with dependence
Opioid use without dependence
Other, please specify
Use of terms such as suspected, likely, concern for, or probable (associated with a specific diagnosis that is being evaluated, monitored, or treated as if it exists) are acceptable and can be coded in the inpatient setting, when documented at the
time of discharge.
Thank you,
MARYAM Washington RN
CDI Specialist'
available via tiger text
Please use your independent medical judgment in providing your response.
[2023-12-25 15:00] VITALS: BP 127/64
--- NOTE | 2023-12-25 15:20 | VNURNOTE ---
Home Health Liaison spoke with patient's Payton at 1515 to discuss [facility] nurse/therapy, visits, schedule and homebound status. Payton is agreeable and understands that visits at home will be 2-3 x per week to assess and teach medical management.
Payton is aware that [facility] will contact them for start of care in 1-2 days after discharge from .
[facility] referral completed in [facility].
--- NOTE | 2023-12-25 15:44 | PN.NS ---
Subjective
-
Patient seen and examined. Offers no new complaints
Physical Exam
-
Exam:
Exam:
Awake, alert, no apparent distress.
Speech is fluent, comprehension intact, repetition is normal.
Cranial nerves II through XII are grossly intact.
Motor: 5/5 strength of bilateral upper and lower extremities with no evidence of pronator drift.
Gait. Not tested.
Head is normocephalic, atraumatic.
Neck is supple.
Breathing is nonlabored.
Cardiac: Regular rate and rhythm
Abdomen is soft
Extremities are warm
MRI of the brain with without contrast performed on 12/24/2023 demonstrates osseous metastatic disease, involving the skull/calvarium along the right posterior lateral aspect, as well as posterior central/left paracentral parietal calvarium.
Additionally, there appears to be an extra-axial soft tissue lesion over the right frontoparietal convexity, suspicious for metastatic disease. No obvious evidence of significant vasogenic edema/T2 flair signal abnormality noted.
Problems
-
Problem Status Onset Code
Left hand weakness R29.898
Intracranial mass R90.0
Assessment / Plan
-
This is a 78-year-old gentleman with a past medical history significant for metastatic prostate cancer, who presents with several day history of left hand weakness and slurred speech.
MRI of the brain with without contrast does indeed demonstrate metastatic spread. Discussion was held with the patient's oncologist, regarding his status of systemic disease.
Ultimately, he has progression of systemic disease, and it is recommended/preferred that the patient start chemotherapy/systemic treatment as soon as possible.
Patient has demonstrated significant symptomatic improvement with steroids. Ultimately, even with surgical excision of the soft tissue extra-axial mass, he will require postoperative radiation, and additionally, his chemotherapy would need to be
delayed several weeks until his cranial wound has healed.
Given size, location, and improvement of symptomatology with steroids, as well as his significant systemic disease status, would recommend initiation of chemotherapy and radiation therapy for his cranial disease as soon as possible.
Continue with dexamethasone at present time. Further dosing of dexamethasone will be deferred to his radiation oncologist during his cranial radiation treatment.
Today's Communication
-
Discussed with patient and .
== END 2023-12-25 16:25 | disposition home health service (06) | DRG 55 ==
LOC: 2 SOUTH 18:02
PROVIDERS: Physician Assistant; Registered Nurse; ADMITTING PHYSICIAN Hospitalist; CONSULT PHYSICIAN Neurological Surgery; EMERGENCY PHYSICIAN Emergency Medicine; FAMILY PHYSICIAN Internal Medicine; OTHER PHYSICIAN Internal Medicine Hematology & Oncology; OTHER PHYSICIAN Student in an Organized Health Care Education/Training Program
DX: C79.31 Secondary malignant neoplasm of brain (principal); C79.51 Secondary malignant neoplasm of bone; F11.20 Opioid dependence, uncomplicated; C61 Malignant neoplasm of prostate; D63.8 Anemia in other chronic diseases classified elsewhere; E78.00 Pure hypercholesterolemia, unspecified; F41.9 Anxiety disorder, unspecified; G89.29 Other chronic pain; I10 Essential (primary) hypertension; Z66 Do not resuscitate
CPT/HCPCS: 70450; 70553; 72156; 80048; 80053; 82962; 83036; 85025; 85027; 85610; 86803; 93005; 96374; 97116; 97163; 97166; 99285; A9575

== ENCOUNTER 2024-01-28 13:37 | Outpatient (RCR) | payer MEDICARE, SELFPAY ==
[2024-01-28 11:53] LABS: % Basophils 0.1 % (0-2); % Eosinophils 0.1 % (0-6); % Immature Granulocytes 1.6 % (0-0.5); % Lymphocytes 2.2 % (20.5-51.1); % Monocytes 4.4 % (1.7-9.3); % Neutrophils 91.6 % (42.2-75.2); Absolute Immature Granulocytes 0.2 10^3/uL (0-0.05); Absolute Lymphocytes 0.2 10^3/uL (1.2-3.4); Absolute Monocytes 0.4 10^3/uL (0.1-0.6); Absolute Neutrophils 8.9 10^3/uL (1.4-6.5); Hematocrit 37.4 % (39.0-52.0); Hemoglobin 12.6 g/dL (13.0-18.0); Mean Corp Hgb Conc. 33.7 g/dL (33.0-37.0); Mean Corpuscular Hgb 32.6 pg (27.0-31.0); Mean Corpuscular Volume 96.9 fL (80.0-94.0); Mean Platelet Volume 8.9 fL (7.4-10.4); Platelet Count 148 10^3/uL (130-400); Red Blood Cell Count 3.86 10^6/uL (4.70-6.10); Red Cell Dist. Width 14.3 % (11.5-14.5); White Blood Cell Count 9.7 10^3/uL (4.8-10.8)
[2024-01-28 13:11] LABS: ALT (SGPT) 25 U/L (0-50); AST (SGOT) 30 U/L (17-59); Albumin 3.8 g/dl (3.5-5.0); Alkaline Phosphatase 124 U/L (38-126); Blood Urea Nitrogen 28 mg/dl (9-20); Calcium 9.2 mg/dl (8.4-10.2); Carbon Dioxide 32 mmol/L (22-30); Chloride 101 mmol/L (98-107); Glucose 103 mg/dl (70-99); Potassium 4.4 mmol/L (3.5-5.1); Sodium 138 mmol/L (135-145); Total Bilirubin 0.4 mg/dl (0.2-1.3); Total Protein 6.4 g/dl (6.3-8.2); eGFR > 60.00
== END 2024-01-30 23:59 | disposition home or self-care (01) ==
LOC: OID 13:37
PROVIDERS: ATTENDING PHYSICIAN Internal Medicine Hematology & Oncology
DX: C61 Malignant neoplasm of prostate (principal); R53.1 Weakness; C79.51 Secondary malignant neoplasm of bone
CPT/HCPCS: 80053; 84153; 85025

== ENCOUNTER 2024-03-02 04:27 | Inpatient (IN) | payer MEDICARE, OTHER, SELFPAY ==
[2024-03-01 22:11] VITALS: BP 146/76
[2024-03-01 22:34] LABS: Hematocrit 24.2 % (39.0-52.0); Hemoglobin 8.6 g/dL (13.0-18.0); Mean Corp Hgb Conc. 35.5 g/dL (33.0-37.0); Mean Corpuscular Hgb 32.6 pg (27.0-31.0); Mean Corpuscular Volume 91.7 fL (80.0-94.0); Mean Platelet Volume 10.2 fL (7.4-10.4); Platelet Count 134 10^3/uL (130-400); Red Blood Cell Count 2.64 10^6/uL (4.70-6.10); Red Cell Dist. Width 15.8 % (11.5-14.5); White Blood Cell Count 10.3 10^3/uL (4.8-10.8)
[2024-03-01 22:45] LABS: Lactic Acid 1.3 mmol/L (0.7-2.0)
[2024-03-01 22:51] LABS: ALT (SGPT) 15 U/L (0-50); AST (SGOT) 33 U/L (17-59); Albumin 3.2 g/dl (3.5-5.0); Alkaline Phosphatase 169 U/L (38-126); Blood Urea Nitrogen 18 mg/dl (9-20); Calcium 8.4 mg/dl (8.4-10.2); Carbon Dioxide 30 mmol/L (22-30); Chloride 96 mmol/L (98-107); Glucose 113 mg/dl (70-99); Potassium 3.5 mmol/L (3.5-5.1); Sodium 130 mmol/L (135-145); Total Protein 5.2 g/dl (6.3-8.2); eGFR > 60.00
[2024-03-01] MEDS: ZOFRAN 4 MG IV (22:53)
[2024-03-01 22:57] LABS: Absolute Neutrophils -Man Diff 9.8 10^3/uL (1.4-6.5); Band Neutrophils 10 % (0-3); Lymphocytes 1 % (20-51); Metamyelocytes 1 % (-); Myelocytes 2 % (-); Platelets Checked Yes; Segmented Neutrophils 86 % (42-75)
[2024-03-01 22:58] LABS: Microcytosis 2+; Normal RBC Morphology No; Total Cells Counted 100
[2024-03-02] VITALS (16 sets, daily range): BP systolic 103–154; BP diastolic 67–92; PULSE 75–87; O2SAT 95–97; BMI 22.6; BMI 22.4
[2024-03-02 00:36] LABS: Urine Albumin Trace (Neg - Trace); Urine Bilirubin Negative (Negative); Urine Character Clear (Clear); Urine Color Yellow; Urine Glucose Negative (Negative); Urine Ketone Negative (Negative); Urine Leukocyte Negative (Negative); Urine Nitrite Negative (Negative); Urine Occult Blood Negative (Negative); Urine Specific Gravity 1.015 (<1.030); Urine Urobilinogen Negative (Neg - 1+)
--- NOTE | 2024-03-02 01:22 | ED.GENMED ---
History of Present Illness
General
Chief Complaint: Weakness
Source: patient
Exam Limitations: none
Time Seen by Provider: 03/02/24 01:09
History of Present Illness
History of Present Illness:
78-year-old male near syncopal episode while on the toilet. Has felt generally weak and washed out the last few days. Currently being treated for prostate CA. No chest pain shortness of breath or fever. Symptoms are moderate in nature.
Past History
Past History
ED Past Medical History: Cancer (Prostate cancer 2012) and Other (Diverticulosis)
ED Past Surgical History: Urological (Prostatectomy 2012) and Other (Hernia repair)
Social History
Tobacco: Non-smoker
Alcohol: Occasional (Rare)
Personal:
Living: with family
Employment: Retired
Family History
Family History: Other (Noncontributory)
Review of Systems
Review of Systems
All Other Systems: Not applicable
Constitutional: Denies fever or chills
Respiratory: Reports no symptoms
Cardiac: Reports no symptoms
ABD/GI: Denies bloody stools or black stools
Phy Exam
Physical Exam
Physical Exam:
GENERAL: Alert and oriented. Generally weak appearing
EYE: Orbits normal.
NECK: Supple
ENT: Pharynx without erythema
CARDIAC: Regular rate and rhythm without any obvious murmurs.
LUNGS: Clear breath sounds,normal
ABDOMEN: Soft, without focal tenderness or distention. Rectal yellow to brown stool test negative
NEUROLOGICAL: Alert and oriented , grossly non-focal
SKIN: Warm and dry, no rash or lesion, no discoloration, skin intact.
MUSCULOSKELETAL: No edema,no deformity.Good color
PSYCH: Normal and appropriate interaction.
Course
Orders/Labs/Results
Orders:
Orders
03/01/24 22:21
Electrocardiogram (*1) Urgent
Reason for Study: Other
Other Reason for Exam: Possible Sepsis
Cardiac Monitoring- Treatment ONCE
EKG- Treatment ONCE
IV Insert/Care/Rem.- Treatment PRN
O2 Therapy [RESP] Urgent
Titrate/Wean O2 to maintain O2 sat greater than (%): 93
Special Instructions: TO MAINTAIN CONTINUOUS O2 SATS > OR = 93%
Pulse Ox/cont/shift [RESP] Urgent
Quantity: 1
Special Instructions: CONTINUOUS
03/01/24 22:27
Complete Blood Count/With Diff Urgent
Comprehensive Metabolic Panel Urgent
Lactic Acid Q4H
Comment: ON ICE, CANCEL 2ND ORDER IF FIRST LACTIC ACID LEVEL <2
Manual Differential Urgent
Blood Culture Q30M
ALEX Source: Blood/Venous
Specimen Description:
Comment: FROM 2 SEPARATE SITES
03/01/24 22:30
Blood Culture Q30M
ALEX Source: Blood/Venous
Specimen Description:
Comment: FROM 2 SEPARATE SITES
03/01/24 22:31
Ondansetron Injectable [Zofran] 4 mg .ROUTE .ST-MED ONE
03/01/24 22:43
Ondansetron Injectable [Zofran] 4 mg IV NOW STA
03/02/24 00:03
Urinalysis Reflex To Culture Urgent
Date Specimen was Collected: 03/02/24
Time Specimen was Collected: 00:00
03/02/24 01:21
0.9% Sodium Chloride 500 ml [Nss] 500 ml IV BOLUS
Abnormal Lab Results
03/01/24
22:27
RBC 2.64 L 10^6/uL
(4.70-6.10)
Hgb 8.6 L g/dL
(13.0-18.0)
Hct 24.2 L %
(39.0-52.0)
MCH 32.6 H pg
(27.0-31.0)
RDW 15.8 H %
(11.5-14.5)
Abs Neuts (Manual) 9.8 H 10^3/uL
(1.4-6.5)
Segmented Neutrophils 86 H %
(42-75)
Band Neutrophils 10 H %
(0-3)
Lymphocytes (Manual) 1 L %
(20-51)
Sodium 130 L mmol/L
(135-145)
Chloride 96 L mmol/L
(98-107)
Creatinine 0.6 L mg/dL
(0.7-1.3)
Glucose 113 H mg/dl
(70-99)
Alkaline Phosphatase 169 H U/L
(38-126)
Total Protein 5.2 L g/dl
(6.3-8.2)
Albumin 3.2 L g/dl
(3.5-5.0)
03/01/24 22:27
03/01/24 22:27
Vital Signs
Initial and Last Documented VS:
Initial Vital Signs
Temp Pulse Resp BP Pulse Ox
101.4 F H 95 25 146/76 94
03/01/24 22:11 03/01/24 22:11 03/01/24 22:11 03/01/24 22:11 03/01/24 22:11
Last Documented Vital Signs
Temp Pulse Resp BP Pulse Ox
99.1 F 84 20 110/70 95
03/02/24 00:02 03/02/24 01:52 03/02/24 01:15 03/02/24 01:00 03/02/24 01:52
*Pulse Oximetry
Patient hypoxic: no
*EKG
Interpretation: normal
Comparison EKG: changes noted
Heart Rate: 89
Rate: normal
Rhythm: sinus
Welling: normal axis
Interval: normal interval
QRS Pattern: normal QRS
Ischemia: no ischemia
*Critical Care Note
Total Time (30-74mins, 75-104mins- exclusive of procedures): Not Applicable
Data Reviewed
Review of Other/Old Records Reveals: Labs, Testing, Progress Notes and Discharge Summary
Update Note
Update Note:
78-year-old male known metastasis to the bone. Osseous metastatic disease involving the calvarium presents with near syncope weakness anemia although negative rectal exam. Low-grade fever. No obvious clinical source. Blood cultures pending.
Urine negative. Warrants inpatient management.
ED Attending Note
-
Portions of this chart may have been created with voice recognition software.� Occasional wrong word or��sound alike� substitutions may have occurred due to the inherent limitations of voice recognition software.
Discharge Plan
Departure
Patient Disposition: Admit
Date of Disposition: 03/02/24
Time of Disposition: 01:26
Presentation/result/management discussed w/ accepting MD/DO: Hospitalist
Discharge Problem:
Near syncope, Anemia, Fever, Metastatic prostate CA
Prescriptions:
No Action
Calcium 600-Vit D3 500 Softgel
1 tab PO DAILYPRN PRN (Reason: supplement)
Patient Comments:
atorvastatin 10 MG tablet
10 mg PO Q48H@2200
Patient Comments:
therapeutic multivitamin Tablet
1 tab PO Q48H@0800
oxycodone 5 mg Tablet
5 mg PO Q8H
lactulose 10 gram/15 mL Solution
15 ml PO [id number] PRN (Reason: constipation)
Glucosamine Chondroitin
1 cap PO Q48H@0800
zinc gluconate 30 mg Tablet
30 mg PO Q72H
ascorbic acid (vitamin C) [Vitamin C] 500 mg Tablet
500 mg PO DAILY
lorazepam [Ativan] 1 mg Tablet
1 mg PO DAILY PRN (Reason: anxiety)
Patient Comments:
12/23/2023, pt. uses prior to CT, MRI, or PET scans.
ibuprofen [Advil] 200 mg Tablet
200 mg PO DAILYPRN PRN (Reason: mild pain)
Metamucil (sugar) Powder
1 tbsp PO Q72H
Trelstar
1 dose IM [id number]
Patient Comments:
12/23/2023, pt. gets through [facility].
dexamethasone 4 mg Tablet
4 mg PO Q12 30 Days Qty: 60 0RF
nifedipine 30 mg Tablet Extended Release
30 mg PO DAILY Qty: 30 0RF
pantoprazole 40 mg Tablet,Delayed Release (Dr/Ec)
40 mg PO DAILY 30 Days Qty: 30 0RF
Referrals:
Gilbert Boo MD [Family Provider] -
Interventions
Interventions:
*Risk Screen - Suicide Last Done: 03/01/24 22:11
*General Assessment Last Done: 03/01/24 22:11
*Neglect/Abuse Screening Last Done: 03/02/24 00:00
*ED COVID-19 Vaccine History Last Done: 03/02/24 00:00
ED- Neurological Assessment Last Done: 03/01/24 23:38
Discharge Date and Time
Print Language: CROATIAN
[2024-03-02] MEDS: NSS 500 IV (01:53)
[2024-03-02 03:26] LABS: COVID-19 Antigen Negative (Negative)
--- NOTE | 2024-03-02 04:22 | HPS.HSE ---
Family Physician
-
Family Physician: Gilbert Boo
Chief Complaint
-
Fatigue, Weakness
History of Present Illness
Patient is a 78y M with PMH significant for metastatic prostate cancer who presents to ED complaining of generalized weakness and fatigue. Patient states that he started on a new chemotherapy recently. He completed his first cycle with no
significant adverse effects. He began his second cycle last . Since that time he has felt markedly fatigued. He notes that he has been sleeping all day. He complains of sore throat. He denies F/C, cough, SOB, chest pain, abdominal pain.
He had N/V x 3 episodes today and notes that he has been constipated with black, hard stools.
This evening, he was seated on the toilet straining for a BM and he was unable to get up off of the toilet when he was finished.
ED history indicates that patient had syncopal event - though he denies LOC to me.
He notes that his attempted to help him up but - when they were unsuccessful - they called for help and were brought to the ED for evaluation.
Medical History
Past Medical History
Past Medical History: Reports Other
Additional Past Medical History:
Bradycardia
Colon polyps
Hyperlipidemia
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
Hypertension
Past Surgical History: Reports Other
Additional Past Surgical History:
Hernia surgery x 2
Carpal tunnel surgery
Prostatectomy
Vertebroplasty
Social History
Tobacco: Non-smoker
Alcohol: None
Drug: None
Personal:
Living: With Family
Family History
Family History: Not pertinent
Allergies / Home Medications
Allergies reflects when Allergies were last updated in [facility].
Home Medications with original date entered in [facility]
Allergy/Medication List:
Allergies
Allergy/AdvReac Type Severity Reaction Status Date / Time
No Known Allergies Allergy Verified 03/01/24 22:20
Home Medications
atorvastatin 10 mg tablet 10 mg PO Q48H@2200 High Cholesterol 03/15/21
Glucosamine Chondroitin 1 cap PO Q48H@0800 Supplement 10/09/23
lactulose 10 gram/15 mL oral solution 15 ml PO [id number] PRN constipation 10/09/23
oxycodone 5 mg tablet 5 mg PO Q8H severe pain 10/09/23
therapeutic multivitamin 1 tab PO Q48H@0800 Supplement 10/09/23
lorazepam 1 mg tablet (Ativan) 1 mg PO DAILY PRN anxiety 12/04/23
zinc gluconate 30 mg tablet 30 mg PO Q72H Supplement 12/04/23
Trelstar 1 dose IM [id number] PROSTATE 12/23/23
psyllium seed (sugar) oral powder (Metamucil (sugar) oral powder) 1 tbsp PO Q72H Constipation 12/23/23
dexamethasone 4 mg tablet 1 mg PO DAILY 03/02/24
Review of Systems
-
History Source: Patient
A 12 point ROS was completed and negative except as noted: Yes
Constitutional: Reports Fatigue; Denies Fever or Chills
EENT: Reports Sore Throat; Denies Runny Nose
Respiratory: Denies Cough or Trouble Breathing
Cardiac: Denies Chest Pain or Palpitations
Abdomen/GI: Reports Nausea, Vomiting, Constipated and Black Stools; Denies Abdominal Pain, Diarrhea or Anorexia
: Reports Incontinence; Denies Dysuria, Frequency or Flank Pain
Musculoskeletal: Denies Edema
Neurological: Denies Dizzy or Headache
Psych: Denies Depression or Anxiety
Physical Exam
Vital Signs
Vital Signs
Temp Pulse Resp BP Pulse Ox
99.1 F 84 21 103/92 95
03/02/24 00:02 03/02/24 02:15 03/02/24 02:15 03/02/24 02:00 03/02/24 01:52
Physical Exam
General: Other (78y M in no acute distress. Somewhat lethargic but answers questions / follows commands.)
HEENT: PERRLA and Other (Dry MM.)
Respiratory: Other (Decreased BS over the L base. No W/R/R.)
Cardiac: S1/S2 and Regular Rhythm; No Murmur
GI: Soft, Non Tender, Non Distended and Normal Bowel Sounds
Musculoskeletal: No Clubbing, No Cyanosis and No Edema
Neuro: AO x 3 and Nonfocal/grossly intact
Laboratory Results
-
03/01/24 22:27
03/01/24 22:27
Laboratory Results
Lactic Acid Cancelled 03/02/24 02:30
Total Bilirubin 1.0 mg/dl (0.2-1.3) 03/01/24 22:27
AST 33 U/L (17-59) 03/01/24 22:27
ALT 15 U/L (0-50) 03/01/24 22:27
Alkaline Phosphatase 169 U/L (38-126) H 03/01/24 22:27
Impression/Plan
-
A/P: Patient is a 78y M with PMH significant for metastatic prostate cancer who presents to ED complaining of generalized weakness and fatigue.
Generalized Weakness / Fatigue
- Likely multifactorial. See individual issues below which are likely contributing.
- PT / OT evaluations.
- Follow for clinical improvement.
Symptomatic Anemia
Anemia of Chronic Disease
- Hgb = 8.6 compared to prior value of 12.6 two months ago.
- Likely due to new / changes chemotherapy regimen.
- No evidence of any gross / active blood loss.
- Stool heme negative in the ED despite report of black stools.
- Continue to heme test stool and consult GI if heme positive / worsening anemia.
- Follow for changes in H&H.
LLL Pneumonia
- Patient presented with fever 101.1 and CXR showing L posterior opacity.
- ? small effusion v infiltrate.
- Given fever to 101, immunocompromised state and x-ray changes will begin IV abx with Zosyn.
- Follow fever curve and monitor for any new / worsening symptoms.
- Follow-up culture data.
Possible Syncope
- Certainly setting of straining for BM would be consistent with syncopal event - though patient denies this for me.
- Monitor on telemetry overnight.
- Follow for any new / worsening symptoms.
Metastatic Prostate Cancer
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
- Stable. CT head done in the ED given possible syncope.
- This shows some improvement from prior s/p XRT to the area.
- New chemo started a few weeks ago as noted above.
- Follow for improvement in cell counts, fatigue, etc as noted above.
- Continue daily dexamethasone.
- Follow-up with Oncology after discharge ([place]).
Chronic Pain Syndrome secondary to the above
Chronic Opioid Dependence secondary to the above
- Continue usual outpatient oxycodone regimen.
- Follow for any new / worsening pain symptoms.
DVT Prophylaxis: SCDs
Code Status: DNR
[2024-03-02] MEDS: ZOSYN 50 IV ×4 (04:46→21:56)
[2024-03-02] MEDS: NSS 1000 IV ×2 (06:21→17:52)
--- NOTE | 2024-03-02 06:37 | PTCARENOTE ---
Addendum entered by Suzanne Alonso RN 03/02/24 07:35:
Unable to obtain orthostatic signs as ordered, pt too weak to stand. [facility] covering house notified.
Original Note:
Pt received from ED via stretcher. AAOx3, drowsy. Pulled over to bed x3 without incident. Telemetry = SR, continuous SpO2 placed 95% on RA. Admission and assessment completed, oriented to surroundings and plan of care discussed. Pt unsure of
meds/dosages, requested RN call , VM left. Instructed pt to ring for assist, verbalizes understanding. AM labs pulled from SubQ port, NSS infusing at 80 mL/hr. Call hue w/in reach. Plan of care ongoing.
[2024-03-02 06:41] LABS: Hematocrit 24.3 % (39.0-52.0); Hemoglobin 8.3 g/dL (13.0-18.0); Mean Corp Hgb Conc. 34.2 g/dL (33.0-37.0); Mean Corpuscular Hgb 32.7 pg (27.0-31.0); Mean Corpuscular Volume 95.7 fL (80.0-94.0); Mean Platelet Volume 10.4 fL (7.4-10.4); Platelet Count 121 10^3/uL (130-400); Red Blood Cell Count 2.54 10^6/uL (4.70-6.10); Red Cell Dist. Width 15.6 % (11.5-14.5); White Blood Cell Count 5.6 10^3/uL (4.8-10.8)
[2024-03-02 07:06] LABS: Blood Urea Nitrogen 15 mg/dl (9-20); Calcium 8.1 mg/dl (8.4-10.2); Carbon Dioxide 29 mmol/L (22-30); Chloride 99 mmol/L (98-107); Estimated Creatinine Clearance 106 ml/min; Glucose 99 mg/dl (70-99); Iron 138 ug/dl (49-181); Potassium 3.6 mmol/L (3.5-5.1); Sodium 132 mmol/L (135-145); eGFR > 60.00
[2024-03-02 07:16] LABS: Percent Saturation 73 % (20-50); Total Iron Binding Capacity 189 ug/dl (261-462)
[2024-03-02 07:53] LABS: Vitamin B12 > 1000 pg/ml (239-931)
[2024-03-02] MEDS: COLACE PO ×2 (07:54→20:24)
[2024-03-02] MEDS: DECADRON 1 MG PO (08:43)
[2024-03-02] MEDS: NSS (PRESERVATIVE FREE) 10 ML IV (08:43)
[2024-03-02] MEDS: PROTONIX IV 40 MG IV (08:43)
--- NOTE | 2024-03-02 10:38 | W.PN.UPDATE ---
Update Note
Progress Note Update
Seen and examined independent of overnight physician. Patient still continues to feel fatigued. About to eat breakfast. On room air.
General: awake, chronically ill. R chest wall port noted
HEENT: PERRLA and Other (Dry MM.)
Respiratory: Other (Decreased BS over the L base. No W/R/R.)
Cardiac: S1/S2 and Regular Rhythm; No Murmur
GI: Soft, Non Tender, Non Distended and Normal Bowel Sounds
Musculoskeletal: No Clubbing, No Cyanosis and No Edema
Neuro: AO x 3 and Nonfocal/grossly intact
A/P: Patient is a 78y M with PMH significant for metastatic prostate cancer who presents to ED complaining of generalized weakness and fatigue.
Generalized Weakness / Fatigue
- Likely multifactorial.
- PT / OT evaluations.
- Follow for clinical improvement.
Symptomatic Anemia
Anemia of Chronic Disease
- Hgb = 8.3 compared to prior value of 12.6 two months ago.
- Likely due to new / changes chemotherapy regimen.
- No evidence of any gross / active blood loss.
- Stool heme negative in the ED despite report of black stools.
- Follow for changes in H&H. Transfuse hgb <7.
LLL Pneumonia
- Patient presented with fever 101.1 and CXR showing L posterior opacity.
- ? small effusion v infiltrate.
- Given fever to 101, immunocompromised state and x-ray changes will begin IV abx with Zosyn.
- Follow fever curve and monitor for any new / worsening symptoms.
- Follow-up culture data.
Possible Syncope
- Certainly setting of straining for BM would be consistent with syncopal event - though patient denies this for me.
- Monitor on telemetry overnight.
- Follow for any new / worsening symptoms.
- PT/OT
Metastatic Prostate Cancer
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
- Stable. CT head done in the ED given possible syncope.
- New chemo started a few weeks ago as noted above.
- Follow for improvement in cell counts, fatigue, etc as noted above.
- Continue daily dexamethasone 1mg daily.
- Follow-up with Oncology after discharge ([place]).
Chronic Pain Syndrome secondary to the above
Chronic Opioid Dependence secondary to the above
- Continue usual outpatient oxycodone regimen.
- Follow for any new / worsening pain symptoms.
DVT Prophylaxis: SCDs
Code Status: DNR
--- NOTE | 2024-03-02 11:40 | CM ---
Initial assessment completed with patient's . Patient lives with in a [address] at [facility] with no steps to enter. DME is [employer], [employer], grab bars at show. No in-home services although has had [facility] in past for VN PT/OT. [employer] patient was
independent with use of RW, he does not drive anymore and does not work. No psychiatric hospitalizations. Pharmacy is [facility] in [place] and PCP is Dr. Gilbert Boo. Anticipate discharge with services. Will await therapy recommendations.
[2024-03-02] MEDS: ROXICODONE 5 MG PO ×2 (12:33→20:25)
[2024-03-02] MEDS: SENOKOT PO (21:56)
[2024-03-03] VITALS (8 sets, daily range): BP systolic 92–167; BP diastolic 55–91; PULSE 72–101; BMI 22.3
[2024-03-03] MEDS: ROXICODONE 5 MG PO ×2 (04:16→22:28)
[2024-03-03] MEDS: ZOSYN 50 IV ×4 (04:16→22:29)
[2024-03-03] MEDS: NSS IV (09:00)
[2024-03-03] MEDS: METAMUCIL, KONSYL 1 PACKET PO (09:04)
[2024-03-03] MEDS: COLACE 100 MG PO ×2 (09:04→20:20)
[2024-03-03] MEDS: NSS (PRESERVATIVE FREE) 10 ML IV (09:05)
[2024-03-03] MEDS: PROTONIX IV 40 MG IV (09:05)
[2024-03-03] MEDS: ZINC SULFATE 220 MG PO (09:06)
[2024-03-03] MEDS: DECADRON PO (09:33)
[2024-03-03] MEDS: CLARITIN 10 MG PO (10:09)
--- NOTE | 2024-03-03 10:19 | W.PN.HOSP.TC ---
Today's Communication/Plan
-
CM for SNF
IV abx
OOB/PT
Confirm steroid dose
Assessment / Plan
Assessment / Plan
General: awake, chronically ill. R chest wall port noted
HEENT: PERRLA and Other (Dry MM.)
Respiratory: Other (Decreased BS over the L base. No W/R/R.)
Cardiac: S1/S2 and Regular Rhythm; No Murmur
GI: Soft, Non Tender, Non Distended and Normal Bowel Sounds
Musculoskeletal: No Clubbing, No Cyanosis and No Edema
Neuro: AO x 3 and Nonfocal/grossly intact
A/P: Patient is a 78y M with PMH significant for metastatic prostate cancer who presents to ED complaining of generalized weakness and fatigue.
Generalized Weakness / Fatigue
- Likely multifactorial.
- PT / OT evaluations.
- Follow for clinical improvement.
Symptomatic Anemia
Anemia of Chronic Disease
Thrombocytopenia likely 2/2 chemotherapy
- Hgb = 8.3 compared to prior value of 12.6 two months ago.
- Likely due to new / changes chemotherapy regimen.
- No evidence of any gross / active blood loss.
- Stool heme negative in the ED despite report of black stools.
- Follow for changes in H&H. Transfuse hgb <7.
LLL Pneumonia
- Patient presented with fever 101.1 and CXR showing L posterior opacity.
- ? small effusion v infiltrate.
- Given fever to 101, immunocompromised state and x-ray changes will begin IV abx with Zosyn.
- Follow fever curve and monitor for any new / worsening symptoms.
- Follow-up culture data.
Possible Syncope
- Certainly setting of straining for BM would be consistent with syncopal event - though patient denies this for me.
- Monitor on telemetry overnight.
- Follow for any new / worsening symptoms.
- PT/OT
Metastatic Prostate Cancer
Urinary retention
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
- Stable. CT head done in the ED given possible syncope.
- New chemo started a few weeks ago as noted above.
- Follow for improvement in cell counts, fatigue, etc as noted above.
- Confirm Steroid dose
- If persistent retention may need flomax if bp can tolerate it
- Follow-up with Oncology after discharge ([place]).
Chronic Pain Syndrome secondary to the above
Chronic Opioid Dependence secondary to the above
- Continue usual outpatient oxycodone regimen.
- Follow for any new / worsening pain symptoms.
DVT Prophylaxis: SCDs
Code Status: DNR
PT/OT-SNF.
Anticipated Discharge: Within 24 hours
Subjective/Interval History
-
Date of Service: March 03, 2024
Overnight with urinary retention
Objective Data
-
Labs:
Laboratory Results
03/03/24
10:11
WBC Pending
Hgb Pending
Hct Pending
Plt Count Pending
Sodium Pending
Potassium Pending
Chloride Pending
Carbon Dioxide Pending
BUN Pending
Creatinine Pending
Glucose Pending
Calcium Pending
Vital Signs:
Vital Signs
Temp Pulse Resp BP Pulse Ox
98.6 F 72 16 137/79 95
03/03/24 07:54 03/03/24 07:54 03/03/24 07:54 03/03/24 07:54 03/03/24 07:54
I&O
03/02/24 03/03/24 03/04/24
06:59 06:59 06:59
Intake Total 320 / 320 1460 / 1460
Output Total 200 / 200 1125 / 1125
Balance 120 / 120 335 / 335
[2024-03-03 10:33] LABS: % Basophils 2.1 % (0-2); % Eosinophils 9.5 % (0-6); % Immature Granulocytes 9.5 % (0-0.5); % Lymphocytes 16.8 % (20.5-51.1); % Monocytes 5.3 % (1.7-9.3); % Neutrophils 56.8 % (42.2-75.2); Absolute Eosinophils 0.1 10^3/uL (0-0.7); Absolute Immature Granulocytes 0.1 10^3/uL (0-0.05); Absolute Lymphocytes 0.2 10^3/uL (1.2-3.4); Absolute Monocytes 0.1 10^3/uL (0.1-0.6); Hematocrit 24.3 % (39.0-52.0); Hemoglobin 8.3 g/dL (13.0-18.0); Mean Corp Hgb Conc. 34.2 g/dL (33.0-37.0); Mean Corpuscular Hgb 32.5 pg (27.0-31.0); Mean Corpuscular Volume 95.3 fL (80.0-94.0); Mean Platelet Volume 10.5 fL (7.4-10.4); Nucleated Red Blood Cells % 0 % (-); Platelet Count 110 10^3/uL (130-400); Red Blood Cell Count 2.55 10^6/uL (4.70-6.10); Red Cell Dist. Width 15.6 % (11.5-14.5)
--- NOTE | 2024-03-03 10:39 | PN.CDI ---
CDI
- -
CDI:
Physician Documentation Request
Admit Date: 03/02/24 04:27
Dear Doctor Elizabeth,
Patient admitted for pneumonia.
Selected Entries
03/01/24
22:11
Temp 101.4 F H
03/01/24
22:11 03/01/24
23:30 03/01/24
23:45
Pulse 95 92 93
03/01/24
22:11 03/02/24
00:02
Resp Rate 25 20
Please clarify which of the following most accurately describes the status of the patient's infection:
Sepsis, POA
- Systemic manifestations of infection, with 2 or more SIRS criteria which include:
- Fever >100.4 degrees F or hypothermia < 96.8 degrees F
- Leukocytosis - WBC > 12,000 or leukopenia - WBC < 4,000 or > 10% bands
- Tachycardia > 90 beats per minute
- Tachypnea - RR > 20 breaths per minute or PaCO2 , 32mmHg
Source: Merck Manual 2013
Localized Infection Only, Without Systemic Illness
- indicate the site/source, such pneumonia etc.
Other
Use of terms such as suspected, likely, concern for, or probable (associated with a specific diagnosis that is being evaluated, monitored, or treated as if it exists) are acceptable and can be coded in the inpatient setting, when documented at the
time of discharge.
Thank you,
Analisa Parry RN, BSN
CDI Specialist
Available via [place] text
Please use your independent medical judgment in providing your response.
[2024-03-03 11:14] LABS: Blood Urea Nitrogen 10 mg/dl (9-20); Calcium 8.5 mg/dl (8.4-10.2); Carbon Dioxide 26 mmol/L (22-30); Chloride 102 mmol/L (98-107); Estimated Creatinine Clearance 105 ml/min; Glucose 106 mg/dl (70-99); Potassium 3.5 mmol/L (3.5-5.1); Sodium 131 mmol/L (135-145); eGFR > 60.00
[2024-03-03 11:28] LABS: Absolute Neutrophils 0.5 10^3/uL (1.4-6.5)
[2024-03-03] MEDS: DECADRON 1 MG PO (11:40)
--- NOTE | 2024-03-03 12:09 | CM ---
Addendum entered by Aurora Chavez 03/03/24 12:17:
Jasmina Jama #[phone] received [facility] referral via [facility] and will let us know when bed will be available
Addendum entered by Aurora Chavez 03/03/24 12:13:
Spoke with Jasmina @ [facility]
No beds @ [facility] at this time
Original Note:
PT recommended SNF; met with patient's outside of patient's room; reviewed list of Intermediate Facilities
's preferences are [facility]; referrals sent to both facilities via [facility]
Plan: discharge to SNF when medically stable
[2024-03-03] MEDS: NSS 1000 IV (12:30)
[2024-03-03] MEDS: FLOMAX 0.400000000000000022 MG PO (18:40)
[2024-03-03] MEDS: DELTASONE 5 MG PO (20:20)
[2024-03-03] MEDS: SENOKOT 17.1999999999999993 MG PO (22:28)
[2024-03-03] MEDS: LIPITOR 10 MG PO (22:29)
[2024-03-04 03:00] VITALS: BP 132/69
[2024-03-04] MEDS: ZOSYN 50 IV ×4 (04:56→21:53)
[2024-03-04 05:25] LABS: % Basophils 3.4 % (0-2); % Eosinophils 6.9 % (0-6); % Lymphocytes 22.4 % (20.5-51.1); % Monocytes 12.1 % (1.7-9.3); % Neutrophils 55.2 % (42.2-75.2); Absolute Lymphocytes 0.1 10^3/uL (1.2-3.4); Absolute Monocytes 0.1 10^3/uL (0.1-0.6); Hematocrit 21.6 % (39.0-52.0); Hemoglobin 7.6 g/dL (13.0-18.0); Mean Corp Hgb Conc. 35.2 g/dL (33.0-37.0); Mean Corpuscular Hgb 32.6 pg (27.0-31.0); Mean Corpuscular Volume 92.7 fL (80.0-94.0); Mean Platelet Volume 10.7 fL (7.4-10.4); Nucleated Red Blood Cells % 0 % (-); Platelet Count 103 10^3/uL (130-400); Red Blood Cell Count 2.33 10^6/uL (4.70-6.10); Red Cell Dist. Width 15.6 % (11.5-14.5)
[2024-03-04 05:30] LABS: White Blood Cell Count 0.6 10^3/uL (4.8-10.8)
[2024-03-04 05:50] LABS: Blood Urea Nitrogen 14 mg/dl (9-20); Calcium 8.4 mg/dl (8.4-10.2); Carbon Dioxide 26 mmol/L (22-30); Chloride 104 mmol/L (98-107); Estimated Creatinine Clearance 105 ml/min; Glucose 109 mg/dl (70-99); Potassium 3.7 mmol/L (3.5-5.1); Sodium 134 mmol/L (135-145); eGFR > 60.00
[2024-03-04 06:00] VITALS: BMI 22.4
[2024-03-04 07:20] VITALS: BP 130/76; BP 136/80; BP 136/86; PULSE 76; PULSE 82; PULSE 98
[2024-03-04] MEDS: NSS (PRESERVATIVE FREE) 10 ML IV (08:10)
[2024-03-04] MEDS: PROTONIX IV 40 MG IV (08:10)
[2024-03-04] MEDS: THERAGRAN 1 TABLET PO (08:11)
[2024-03-04] MEDS: ROXICODONE 5 MG PO (08:11)
[2024-03-04] MEDS: CLARITIN 10 MG PO (08:11)
[2024-03-04] MEDS: COLACE 100 MG PO ×2 (08:12→20:23)
[2024-03-04] MEDS: FLOMAX 0.400000000000000022 MG PO (08:12)
[2024-03-04] MEDS: DELTASONE 5 MG PO ×2 (08:12→20:23)
[2024-03-04] MEDS: DECADRON 1 MG PO (08:12)
[2024-03-04 08:27] LABS: Absolute Neutrophils 0.3 10^3/uL (1.4-6.5)
--- NOTE | 2024-03-04 11:06 | W.PN.HOSP.TC ---
Addendum entered and electronically signed by Jonny Johnson MD 03/04/24 13:06:
sepsis-poa
Original Note:
Today's Communication/Plan
-
Oncology input
Continue with antibiotics
Encourage p.o. intake
Trend CBC
Assessment / Plan
Assessment / Plan
General: awake, chronically ill. R chest wall port noted
HEENT: PERRLA and Other (Dry MM.)
Respiratory: Other (Decreased BS over the L base. No W/R/R.)
Cardiac: S1/S2 and Regular Rhythm; No Murmur
GI: Soft, Non Tender, Non Distended and Normal Bowel Sounds
Musculoskeletal: No Clubbing, No Cyanosis and No Edema
Neuro: AO x 3 and Nonfocal/grossly intact
A/P: Patient is a 78y M with PMH significant for metastatic prostate cancer who presents to ED complaining of generalized weakness and fatigue.
Generalized Weakness / Fatigue
- Likely multifactorial.
- PT / OT evaluations.
- Follow for clinical improvement.
Pancytopenia likely secondary to chemotherapy
- Hgb = 7.6. Neutropenic precaution. May benefit from Granix. Will ask oncology for input
- Likely due to new / changes chemotherapy regimen.
- No evidence of any gross / active blood loss.
- Stool heme negative in the ED despite report of black stools.
- Follow for changes in H&H. Transfuse hgb <7.
- Oncology consulted
LLL Pneumonia
- Patient presented with fever 101.1 and CXR showing L posterior opacity.
- ? small effusion v infiltrate.
- Given fever to 101, immunocompromised state and x-ray changes will begin IV abx with Zosyn.
- Follow fever curve and monitor for any new / worsening symptoms.
- Follow-up culture data.
Possible Syncope
- Certainly setting of straining for BM would be consistent with syncopal event - though patient denies this for me.
- Monitor on telemetry overnight.
- Follow for any new / worsening symptoms.
- PT/OT
Metastatic Prostate Cancer
Urinary retention
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
- Stable. CT head done in the ED given possible syncope.
- New chemo started a few weeks ago as noted above.
- Follow for improvement in cell counts, fatigue, etc as noted above.
- On Decadron and prednisone (unclear why on 2 different steroids). Will await further oncology input
- Started Flomax.
- On palliative measure as outpatient and sees Dr. Terry
Chronic Pain Syndrome secondary to the above
Chronic Opioid Dependence secondary to the above
- Continue usual outpatient oxycodone regimen.
- Follow for any new / worsening pain symptoms.
DVT Prophylaxis: SCDs in setting of thrombocytopenia
Code Status: DNR
PT/OT-SNF. Case management aware
Anticipated Discharge: > 48 hours
Subjective/Interval History
-
Date of Service: March 04, 2024
States feeling tired/fatigue
not much appetite
States talked to spouse about hospice however, she is not ready yet.
Patient stated he also discussed hospice with one of his son who visited last night
States he will continue to talk to spouse however now ready to make transition until all family members agreed.
Objective Data
-
Labs:
Laboratory Results
03/04/24
05:10
WBC 0.6 L*
Hgb 7.6 L
Hct 21.6 L
Plt Count 103 L
Sodium 134 L
Potassium 3.7
Chloride 104
Carbon Dioxide 26
BUN 14
Creatinine 0.6 L
Glucose 109 H
Calcium 8.4
Vital Signs:
Vital Signs
Temp Pulse Resp BP Pulse Ox
97.9 F 76 16 130/76 96
03/04/24 07:20 03/04/24 07:20 03/04/24 07:20 03/04/24 07:20 03/04/24 08:00
I&O
03/03/24 03/04/24 03/05/24
06:59 06:59 06:59
Intake Total 1460 / 1460 840 / 840
Output Total 1125 / 1125 975 / 975
Balance 335 / 335 -135 / -135
Data Reviewed
-
Total Time Spent with Patient (in minutes): 55
[2024-03-04 11:15] VITALS: BP 103/62
--- NOTE | 2024-03-04 14:33 | CON.ONC ---
Impression
Impression
prostate cancer - metastatic - s/p carbo/ jevtana 02/25 w/ GCSF 02/26
pancytopenia
neutropenic fever
pneumonia
nausea
Plan
Plan
1. Pancytopenia/ neutropenia - post chemotherapy
-patient received GSCF on 02/26 for WBC support
-cont broad spectrum antibiotics
-cultures pending - NGTD
-follow CBC
2. Prostate cancer - s/p 2 cycles carbo/jevtana w/ Dr. Ruvalcaba
-cont supportive care post chemotherapy
-f/u Dr. Ruvalcaba as an outpt for continued management
Will continue to follow with you.
Patient History
History of Present Illness
78y/o male seen in consultation today regarding metastatic prostate cancer, currently being treated w/ carboplatin/ jevtana, under the care of Dr. Ruvalcaba.
He underwent his 2nd cycle of treatent on 02/25 w/ GCSF on 02/26. He now presents w/ nausea/ vomiting and pancytopenia post chemotherapy. In addition on presentation he had a fever to 101 and left sided pneumonia on imaging.
Clinically, he is feeling slightly better this am. No fevers, no SOB at rest or chest pain. No abdominal pain. Some nausea.
Past-Medical/Surgical History
PMH:
metastatic prostate cancer - carbo/ jevtana - Dr. Ruvalcaba - s/p 2 cycles last 02/25 w/ GCSF
bradycardia
Colon polyps
Hyperlipidemia
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
Hypertension
Past Surgical History:
Hernia surgery x 2
Carpal tunnel surgery
Prostatectomy
Vertebroplasty
Social History
Tobacco: Non-smoker
Alcohol: None
Drug: None
Personal:
Living: With Family
Family History
Family History: Not pertinent
Allergies: NKDA
Patient Medication
�Medication �Instructions �Recorded �Confirmed �Last Taken �Type
atorvastatin 10 mg tablet 10 mg PO Q48H@2200 High Cholesterol 03/15/21 03/02/24 12/22/23 History
Glucosamine Chondroitin 1 cap PO Q48H@0800 Supplement 10/09/23 03/02/24 12/21/23 History
lactulose 10 gram/15 mL oral 15 ml PO [id number] PRN constipation 10/09/23 03/02/24 12/21/23 History
solution
oxycodone 5 mg tablet 5 mg PO Q8H severe pain 10/09/23 03/02/24 12/23/23 02:45 History
therapeutic multivitamin 1 tab PO Q48H@0800 Supplement 10/09/23 03/02/24 12/22/23 History
lorazepam 1 mg tablet (Ativan) 1 mg PO DAILY PRN anxiety 12/04/23 03/02/24 5 Days Ago History
~12/18/23
zinc gluconate 30 mg tablet 30 mg PO Q72H Supplement 12/04/23 03/02/24 12/21/23 History
Trelstar 1 dose IM [id number] prostate cancer 12/23/23 03/02/24 5 Days Ago History
~12/18/23
psyllium seed (sugar) oral powder 1 tbsp PO Q72H Constipation 12/23/23 03/02/24 12/21/23 History
(Metamucil (sugar) oral powder)
dexamethasone 4 mg tablet 1 mg PO DAILY Anti-Inflammatory 03/02/24 03/03/24 Unknown History
hydrochlorothiazide 12.5 mg capsule 25 mg PO 1XD Blood Pressure/edema 03/02/24 03/02/24 Unknown History
loratadine 10 mg tablet (Allergy 10 mg PO DAILY Allergies 03/02/24 03/02/24 Unknown History
Relief (loratadine))
prednisone 1 mg tablet 5 mg PO 2XD Anti-Inflammatory 03/02/24 03/03/24 Unknown History
Active Medications
Generic Name Dose Route Start Last Admin
Trade Name Freq PRN Reason Stop Dose Admin
Acetaminophen 650 mg 03/02/24 05:50
Acetaminophen 325 Mg Tablet PO 03/30/24 05:49
Q4HPRN PRN
Mild Pain / Temp > 101
Albuterol Sulfate 2.5 mg 03/02/24 05:50
Albuterol Nebs 2.5 Mg/3 Ml Ampul INH
R Q4HPRN PRN
SOB
Protocol
Atorvastatin Calcium 10 mg 03/03/24 22:00 03/03/24 22:29
Atorvastatin (Lipitor) 10 Mg Tablet PO 03/31/24 21:59 10 mg
Q48H SAMSON Administration
Dexamethasone 1 mg 03/03/24 11:00 03/04/24 08:12
Dexamethasone 0.5 Mg Tablet PO 03/31/24 10:59 1 mg
DAILY SAMSON Administration
Docusate Sodium 100 mg 03/02/24 08:00 03/04/24 08:12
Docusate Sodium 100 Mg Capsule PO 03/30/24 07:59 100 mg
BID SAMSON Administration
Heparin Sodium (Porcine) 500 unit 03/02/24 13:29 03/04/24 08:24
Heparin Flush Pf (100 Unit/Ml) 5 Ml Syringe IV 03/30/24 13:28 500 unit
PRN PRN Administration
SC PORT FLUSH
Piperacillin Sod/Tazobactam Sod 3.375 gram in 50 mls @ 100 mls/hr 03/02/24 10:00 03/04/24 10:48
Zosyn IV 03/09/24 09:59 50 mls
Q6H SAMSON Administration
Loratadine 10 mg 03/03/24 09:00 03/04/24 08:11
Loratadine 10 Mg Tablet PO 03/31/24 08:59 10 mg
DAILY SAMSON Administration
Melatonin 5 mg 03/04/24 22:00
Melatonin 5 Mg Tablet PO 04/01/24 21:59
HS PRN
insomnia
Multivitamins Therapeutic 1 tablet 03/04/24 08:00 03/04/24 08:11
Multivitamin Tablet PO 04/01/24 07:59 1 tablet
Q48H SAMSON Administration
Ondansetron HCl 4 mg 03/02/24 05:50
Ondansetron 4 Mg/2 Ml Vial IV 03/30/24 05:49
Q6HPRN PRN
nausea and vomiting
Oxycodone HCl 5 mg 03/02/24 05:50 03/04/24 08:11
Oxycodone 5 Mg Regular Release Tablet PO 03/16/24 05:49 5 mg
Q8HPRN PRN Administration
Severe Pain
Pantoprazole Sodium 40 mg 03/02/24 08:00 03/04/24 08:10
Pantoprazole Sodium 40 Mg/10 Ml Vial IV 03/30/24 07:59 40 mg
DAILY SAMSON Administration
Polyethylene Glycol 17 grams 03/02/24 08:00 03/04/24 08:13
Polyethylene Glycol Powder 17 Grams Packet PO 03/30/24 07:59 Not Given
DAILY SAMSON
Prednisone 5 mg 03/03/24 20:00 03/04/24 08:12
Prednisone 5 Mg Tablet PO 03/31/24 19:59 5 mg
BID SAMSON Administration
Psyllium Hydrophilic Mucilloid 1 packet 03/03/24 08:00 03/03/24 09:04
Psyllium Packet PO 03/31/24 07:59 1 packet
Q72H SAMSON Administration
Sennosides 17.2 mg 03/02/24 22:00 03/03/24 22:28
Sennosides (Senokot) 8.6 Mg Tablet PO 03/30/24 21:59 17.2 mg
HS SAMSON Administration
Sodium Chloride 0 flush 03/02/24 05:00
Sodium Chloride 0.9% (Flush) Syringe IV 03/30/24 04:59
PER PROTOCOL SAMSON
Sodium Chloride 10 ml 03/02/24 08:00 03/04/24 08:10
Sodium Chloride 0.9% (Preservative Free) 10 Ml Vial IV 03/30/24 07:59 10 ml
DAILY SAMSON Administration
Tamsulosin HCl 0.4 mg 03/04/24 08:00 03/04/24 08:12
Tamsulosin 0.4 Mg Capsule PO 04/01/24 07:59 0.4 mg
DAILY SAMSON Administration
Zinc Sulfate 220 mg 03/03/24 08:00 03/03/24 09:06
Zinc Sulfate 220 Mg Capsule PO 03/31/24 07:59 220 mg
Q72H SAMSON Administration
Review of Systems
-
A full ROS was performed w/ pertinent findings as per HPI.
Physical Exam
-
General: Well Developed and No Apparent Distress
Cardiology: Normal Sinus Rhythm
Pulmonary: Clear
Extremities: No C/C/E
Neurology: Non Focal
Labs
Lab Results
WBC 0.6 10^3/uL (4.8-10.8) L* 03/04/24 05:10
RBC 2.33 10^6/uL (4.70-6.10) L 03/04/24 05:10
Hgb 7.6 g/dL (13.0-18.0) L 03/04/24 05:10
Hct 21.6 % (39.0-52.0) L 03/04/24 05:10
MCV 92.7 fL (80.0-94.0) 03/04/24 05:10
MCH 32.6 pg (27.0-31.0) H 03/04/24 05:10
MCHC 35.2 g/dL (33.0-37.0) 03/04/24 05:10
RDW 15.6 % (11.5-14.5) H 03/04/24 05:10
Plt Count 103 10^3/uL (130-400) L 03/04/24 05:10
MPV 10.7 fL (7.4-10.4) H 03/04/24 05:10
Abs Immat Gran (auto) 0.0 10^3/uL (0-0.05) 03/04/24 05:10
Absolute Neuts (auto) 0.3 10^3/uL (1.4-6.5) L* 03/04/24 05:10
Absolute Lymphs (auto) 0.1 10^3/uL (1.2-3.4) L 03/04/24 05:10
Absolute Monos (auto) 0.1 10^3/uL (0.1-0.6) 03/04/24 05:10
Absolute Eos (auto) 0.0 10^3/uL (0-0.7) 03/04/24 05:10
Absolute Basos (auto) 0.0 10^3/uL (0-0.2) 03/04/24 05:10
Immature Gran % 0.0 % (0-0.5) 03/04/24 05:10
Neutrophils % 55.2 % (42.2-75.2) 03/04/24 05:10
Lymphocytes % 22.4 % (20.5-51.1) 03/04/24 05:10
Monocytes % 12.1 % (1.7-9.3) H 03/04/24 05:10
Eosinophils % 6.9 % (0-6) H 03/04/24 05:10
Basophils % 3.4 % (0-2) H 03/04/24 05:10
Creatinine 0.6 mg/dL (0.7-1.3) L 03/04/24 05:10
Vital Signs
Vital Signs
Temp Pulse Resp BP Pulse Ox
98.1 F 92 16 103/62 97
03/04/24 11:15 03/04/24 11:15 03/04/24 11:15 03/04/24 11:15 03/04/24 11:15
[2024-03-04 15:38] VITALS: BP 107/65
[2024-03-04 19:44] VITALS: BP 114/62; BP 116/71; BP 97/60; PULSE 102; PULSE 110; PULSE 93
[2024-03-04] MEDS: MELATONIN 5 MG PO (21:53)
[2024-03-04] MEDS: SENOKOT 17.1999999999999993 MG PO (21:53)
[2024-03-04 23:33] VITALS: BP 92/54
[2024-03-05] VITALS (11 sets, daily range): BP systolic 123–155; BP diastolic 70–85; PULSE 82–101; BMI 22.7
[2024-03-05] MEDS: ZOSYN 50 IV ×4 (03:37→22:57)
[2024-03-05 06:56] LABS: % Basophils 1.1 % (0-2); % Eosinophils 6.8 % (0-6); % Immature Granulocytes 1.1 % (0-0.5); % Lymphocytes 30.7 % (20.5-51.1); % Monocytes 18.2 % (1.7-9.3); % Neutrophils 42.1 % (42.2-75.2); Absolute Eosinophils 0.1 10^3/uL (0-0.7); Absolute Lymphocytes 0.3 10^3/uL (1.2-3.4); Absolute Monocytes 0.2 10^3/uL (0.1-0.6); Hemoglobin 7.1 g/dL (13.0-18.0); Mean Corp Hgb Conc. 35.3 g/dL (33.0-37.0); Mean Corpuscular Hgb 32.7 pg (27.0-31.0); Mean Corpuscular Volume 92.6 fL (80.0-94.0); Mean Platelet Volume 11.3 fL (7.4-10.4); Nucleated Red Blood Cells % 0 % (-); Platelet Count 94 10^3/uL (130-400); Red Blood Cell Count 2.17 10^6/uL (4.70-6.10); Red Cell Dist. Width 15.5 % (11.5-14.5)
[2024-03-05 07:05] LABS: Absolute Neutrophils 0.4 10^3/uL (1.4-6.5); Hematocrit 20.1 % (39.0-52.0); White Blood Cell Count 0.9 10^3/uL (4.8-10.8)
[2024-03-05 07:25] LABS: Blood Urea Nitrogen 17 mg/dl (9-20); Calcium 8.7 mg/dl (8.4-10.2); Carbon Dioxide 23 mmol/L (22-30); Chloride 105 mmol/L (98-107); Estimated Creatinine Clearance 92 ml/min; Glucose 105 mg/dl (70-99); Potassium 3.6 mmol/L (3.5-5.1); Sodium 135 mmol/L (135-145); eGFR > 60.00
[2024-03-05] MEDS: NSS (PRESERVATIVE FREE) 10 ML IV (08:42)
[2024-03-05] MEDS: DECADRON 1 MG PO (08:43)
[2024-03-05] MEDS: PROTONIX IV 40 MG IV (08:43)
[2024-03-05] MEDS: CLARITIN 10 MG PO (08:43)
[2024-03-05] MEDS: COLACE 100 MG PO (08:43)
[2024-03-05] MEDS: DELTASONE 5 MG PO ×2 (08:43→19:51)
[2024-03-05] MEDS: FLOMAX 0.400000000000000022 MG PO (08:44)
--- NOTE | 2024-03-05 10:27 | PN.CDI ---
CDI
- -
CDI:
Physician Documentation Request
Admit Date: 03/02/24 04:27
Dear Doctor Elizabeth,
Patient admitted for sepsis.
Laboratory Tests
03/01/24 03/02/24 03/03/24
22:27 06:20 10:11
Sodium 130 L 132 L 131 L
03/04/24
05:10
Sodium 134 L
Based on the above, could you clarify in the progress notes, the appropriate diagnosis, if significant, that supports the above abnormalities and additional evaluation, monitoring and/or treatment rendered:
Hyponatremia
Abnormal lab value insignificant
Other
Use of terms such as suspected, likely, concern for, or probable (associated with a specific diagnosis that is being evaluated, monitored, or treated as if it exists) are acceptable and can be coded in the inpatient setting, when documented at the
time of discharge.
Thank you,
Analisa Parry RN, BSN
CDI Specialist
Available via [place] text
Please use your independent medical judgment in providing your response.
--- NOTE | 2024-03-05 10:37 | W.PN.HOSP.TC ---
Today's Communication/Plan
-
IV abx
transfuse 1u PRBC
OOB
ongoing dispo
Assessment / Plan
Assessment / Plan
General: awake, chronically ill. R chest wall port noted
HEENT: PERRLA, normocephalic
Respiratory: Other (Decreased BS over the L base. No W/R/R.)
Cardiac: S1/S2 and Regular Rhythm; No Murmur
GI: Soft, Non Tender, Non Distended and Normal Bowel Sounds
Musculoskeletal: No Clubbing, No Cyanosis and No Edema
Neuro: AO x 3 and Nonfocal/grossly intact
A/P: Patient is a 78y M with PMH significant for metastatic prostate cancer who presents to ED complaining of generalized weakness and fatigue.
Generalized Weakness / Fatigue
- Likely multifactorial.
- PT / OT evaluations.
- Follow for clinical improvement.
Pancytopenia likely secondary to chemotherapy
- Hgb = 7.1. Neutropenic precaution. Last dose of granix 02/26 per onc correspondence
- Likely due to new / changes chemotherapy regimen.
- No evidence of any gross / active blood loss.
- Stool heme negative in the ED despite report of black stools.
- Follow for changes in H&H. Hgb at 7.1 and symptomatic. Will transfuse 1u PRBC
- Oncology consulted
Sepsis 2/2 LLL Pneumonia-poa
- Patient presented with fever 101.1 and CXR showing L posterior opacity.
- ? small effusion v infiltrate.
- Given fever to 101, immunocompromised state and x-ray changes will begin IV abx with Zosyn.
- Follow fever curve and monitor for any new / worsening symptoms.
- Follow-up culture data.
Possible Syncope
- Certainly setting of straining for BM would be consistent with syncopal event - though patient denies this for me.
- Monitor on telemetry overnight.
- Follow for any new / worsening symptoms.
- PT/OT
Metastatic Prostate Cancer
Urinary retention
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
- Stable. CT head done in the ED given possible syncope.
- New chemo started a few weeks ago as noted above.
- Follow for improvement in cell counts, fatigue, etc as noted above.
- On Decadron and prednisone (unclear why on 2 different steroids). Will await further oncology input
- Started Flomax.
- On palliative measure as outpatient and sees Dr. Terry
Chronic Pain Syndrome secondary to the above
Chronic Opioid Dependence secondary to the above
- Continue usual outpatient oxycodone regimen.
- Follow for any new / worsening pain symptoms.
Mild hyponatremia
-monitor for now
DVT Prophylaxis: SCDs in setting of thrombocytopenia
Code Status: DNR
PT/OT-SNF. Case management aware
Anticipated Discharge: > 48 hours
Subjective/Interval History
-
Date of Service: March 05, 2024
feeling fatigue
Objective Data
-
Labs:
Laboratory Results
03/05/24
06:08
WBC 0.9 L*
Hgb 7.1 L
Hct 20.1 L*
Plt Count 94 L
Sodium 135
Potassium 3.6
Chloride 105
Carbon Dioxide 23
BUN 17
Creatinine 0.7
Glucose 105 H
Calcium 8.7
Vital Signs:
Vital Signs
Temp Pulse Resp BP Pulse Ox
97.8 F 69 16 149/70 97
03/05/24 07:10 03/05/24 07:10 03/05/24 07:10 03/05/24 07:10 03/05/24 07:10
I&O
03/04/24 03/05/24 03/06/24
06:59 06:59 06:59
Intake Total 840 / 840 1060 / 1060
Output Total 975 / 975 750 / 750
Balance -135 / -135 310 / 310
Data Reviewed
-
Total Time Spent with Patient (in minutes): 55
--- NOTE | 2024-03-05 16:06 | CM ---
Patient and family have decided to discharge to [facility] with initiation of hospice. [facility] has accepted. Transport is scheduled for 03/06/24 @ 10:00AM. [facility]. Referral forwarded. If [facility] does not
accept prior to discharge, [facility] will have on skilled unit and will follow-up with [facility]. Contact at [facility] is Jasmina @ [phone].
NURSE TO NURSE REPORT # [phone] Ext # [phone]
FAX # [phone]
--- NOTE | 2024-03-05 16:28 | W.PN.ONC ---
Today's Communication / Plan
-
Unclear whether the subtle abnormality on chest x-ray is a true pneumonia. He is considering various options including hospice. He is fairly certain that he does not want further chemotherapy, but has not made a definite decision. He is
tentatively planning on discharge this weekend. He could be continued on oral antibiotics. He is being transfused for his hemoglobin of 7.1. His neutropenia may take several more days to resolve. No indication for Neupogen.
Impression
Impression
prostate cancer - metastatic - s/p carbo/ jevtana 02/25 w/ GCSF 02/26
pancytopenia
neutropenic fever
pneumonia
nausea
Plan
Plan
1. Pancytopenia/ neutropenia - post chemotherapy
-patient received GSCF on 02/26 for WBC support
-cont broad spectrum antibiotics
-cultures pending - NGTD
-follow CBC
2. Prostate cancer - s/p 2 cycles carbo/jevtana w/ Dr. Ruvalcaba
-cont supportive care post chemotherapy
-f/u Dr. Ruvalcaba as an outpt for continued management
Will continue to follow with you.
Subjective/Objective
Subjective/Objective
He is feeling reasonably well. He reports no new symptoms. Physical examination is unchanged.
Vital Signs:
Vital Signs
Temp Pulse Resp BP Pulse Ox
98.2 F 80 18 138/70 97
03/05/24 15:25 03/05/24 15:25 03/05/24 15:25 03/05/24 15:25 03/05/24 15:25
Lab Results:
Laboratory Data
WBC 0.9 10^3/uL (4.8-10.8) L* 03/05/24 06:08
Hgb 7.1 g/dL (13.0-18.0) L 03/05/24 06:08
Plt Count 94 10^3/uL (130-400) L 03/05/24 06:08
eGFR > 60.00 03/05/24 06:08
[2024-03-05] MEDS: COLACE PO (19:43)
[2024-03-05] MEDS: ROXICODONE 5 MG PO (19:50)
[2024-03-05] MEDS: LIPITOR 10 MG PO (21:27)
[2024-03-05] MEDS: MELATONIN 5 MG PO (21:27)
[2024-03-05] MEDS: SENOKOT PO (21:27)
[2024-03-06 02:42] VITALS: BP 109/71
[2024-03-06 03:00] VITALS: BP 109/71
[2024-03-06] MEDS: ZOSYN 50 IV ×2 (04:41→09:29)
[2024-03-06 05:26] LABS: Hematocrit 22.4 % (39.0-52.0); Mean Corp Hgb Conc. 35.7 g/dL (33.0-37.0); Mean Corpuscular Hgb 32.4 pg (27.0-31.0); Mean Corpuscular Volume 90.7 fL (80.0-94.0); Mean Platelet Volume 10.7 fL (7.4-10.4); Platelet Count 86 10^3/uL (130-400); Red Blood Cell Count 2.47 10^6/uL (4.70-6.10); Red Cell Dist. Width 15.5 % (11.5-14.5); White Blood Cell Count 3.1 10^3/uL (4.8-10.8)
[2024-03-06 05:54] LABS: Blood Urea Nitrogen 14 mg/dl (9-20); Calcium 8.6 mg/dl (8.4-10.2); Carbon Dioxide 24 mmol/L (22-30); Chloride 105 mmol/L (98-107); Estimated Creatinine Clearance 107 ml/min; Glucose 98 mg/dl (70-99); Potassium 3.5 mmol/L (3.5-5.1); Sodium 135 mmol/L (135-145); eGFR > 60.00
[2024-03-06 06:00] VITALS: BMI 22.3
[2024-03-06 07:15] VITALS: BP 147/76
[2024-03-06] MEDS: ZINC SULFATE 220 MG PO (08:10)
[2024-03-06] MEDS: CLARITIN 10 MG PO (08:10)
[2024-03-06] MEDS: THERAGRAN 1 TABLET PO (08:10)
[2024-03-06] MEDS: FLOMAX 0.400000000000000022 MG PO (08:10)
[2024-03-06] MEDS: DECADRON 1 MG PO (08:11)
[2024-03-06] MEDS: DELTASONE 5 MG PO (08:11)
[2024-03-06] MEDS: NSS (PRESERVATIVE FREE) 10 ML IV (08:11)
[2024-03-06] MEDS: PROTONIX IV 40 MG IV (08:11)
[2024-03-06] MEDS: COLACE PO (08:12)
[2024-03-06] MEDS: METAMUCIL, KONSYL PO (08:12)
--- NOTE | 2024-03-06 09:08 | W.PN.HOSP.TC ---
Today's Communication/Plan
-
Hospice at [facility]
Assessment / Plan
Assessment / Plan
General: awake, chronically ill. R chest wall port noted
HEENT: PERRLA, normocephalic
Respiratory: Other (Decreased BS over the L base. No W/R/R.)
Cardiac: S1/S2 and Regular Rhythm; No Murmur
GI: Soft, Non Tender, Non Distended and Normal Bowel Sounds
Musculoskeletal: No Clubbing, No Cyanosis and No Edema
Neuro: AO x 3 and Nonfocal/grossly intact
A/P: Patient is a 78y M with PMH significant for metastatic prostate cancer who presents to ED complaining of generalized weakness and fatigue.
Generalized Weakness / Fatigue
- Likely multifactorial.
- PT / OT evaluations.
- Follow for clinical improvement.
Pancytopenia likely secondary to chemotherapy
- Hgb = 7.1. Neutropenic precaution. Last dose of granix 02/26 per onc correspondence
- Likely due to new / changes chemotherapy regimen.
- No evidence of any gross / active blood loss.
- Stool heme negative in the ED despite report of black stools.
- Follow for changes in H&H. Hgb at 8 transfused 1u PRBC
- Oncology consulted
Sepsis 2/2 LLL Pneumonia-poa
- Patient presented with fever 101.1 and CXR showing L posterior opacity.
- ? small effusion v infiltrate.
- Given fever to 101, immunocompromised state and x-ray changes will begin IV abx with Zosyn.
- Follow fever curve and monitor for any new / worsening symptoms.
- Follow-up culture data.
Possible Syncope
- Certainly setting of straining for BM would be consistent with syncopal event - though patient denies this for me.
- Monitor on telemetry overnight.
- Follow for any new / worsening symptoms.
- PT/OT
Metastatic Prostate Cancer
Urinary retention
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
- Stable. CT head done in the ED given possible syncope.
- New chemo started a few weeks ago as noted above.
- Follow for improvement in cell counts, fatigue, etc as noted above.
- On Decadron and prednisone (unclear why on 2 different steroids). Will await further oncology input
- Started Flomax.
- On palliative measure as outpatient and sees Dr. Terry
Chronic Pain Syndrome secondary to the above
Chronic Opioid Dependence secondary to the above
- Continue usual outpatient oxycodone regimen.
- Follow for any new / worsening pain symptoms.
Mild hyponatremia
-monitor for now
DVT Prophylaxis: SCDs in setting of thrombocytopenia
Code Status: DNR
PT/OT-hospice initiation at SNF on discharge. Patient has decided to undergo hospice and family agreed. Patient understand that he can revoke hospice and can restart chemotherapy if he wants to. All patient questions were answered. DC later today
More than 30 minutes spent in discharge including
Final examination of the patient
Summarizing hospital stay
Instructions for continuing care to all relevant caregivers
Preparation of discharge records, prescriptions, and referral forms
Total time spent (in minutes): 52
Anticipated Discharge: Today
Subjective/Interval History
-
Date of Service: March 06, 2024
states he has decided to go on hospice
Objective Data
-
Labs:
Laboratory Results
03/06/24
05:07
WBC 3.1 L
Hgb 8.0 L
Hct 22.4 L
Plt Count 86 L
Sodium 135
Potassium 3.5
Chloride 105
Carbon Dioxide 24
BUN 14
Creatinine 0.6 L
Glucose 98
Calcium 8.6
Vital Signs:
Vital Signs
Temp Pulse Resp BP Pulse Ox
98.1 F 72 16 147/76 93
03/06/24 07:15 03/06/24 07:15 03/06/24 07:15 03/06/24 07:15 03/06/24 07:15
I&O
03/05/24 03/06/24 03/07/24
06:59 06:59 06:59
Intake Total 1060 / 1060 740 / 740
Output Total 750 / 750 550 / 550
Balance 310 / 310 190 / 190
[2024-03-06 09:13] LABS: Absolute Neutrophils -Man Diff 2.2 10^3/uL (1.4-6.5); Band Neutrophils 8 % (0-3); Eosinophils 5 % (0-6); Lymphocytes 9 % (20-51); Metamyelocytes 1 % (-); Monocytes 8 % (2-9); Myelocytes 3 % (-); Normal RBC Morphology No; Nucleated Red Blood Cells 2 (-); Platelets Checked Yes; Segmented Neutrophils 66 % (42-75)
[2024-03-06 09:14] LABS: Anisocytosis Slight; Hypochromasia 1+; Polychromasia 1+
[2024-03-06 09:15] LABS: Total Cells Counted 100
--- NOTE | 2024-03-06 10:09 | W.DCSUMMARY ---
Discharge Summary
Discharge Data
Date of Admission: 03/02/24
Date of Discharge: 03/06/24
-
Pending Results: No
Hospital Course
78 male past medical history of metastatic prostate cancer with mets to the skull and bones on chemotherapy, chronic pain syndrome, chronic opiate dependence daily basis, primary hypertension who is presenting with complaints of weakness fatigue and
presyncope/possible syncope. Patient was found to have a pancytopenia secondary to chemotherapy. Patient spiked fever and chest x-ray positive for possible infiltrates. Patient blood pressure was well-controlled and HCTZ was not continued.
Patient was started on IV antibiotics. Patient WBC count continue to downtrend. Hemoglobin down trended and received unit of PRBC. Hemoglobin stabilized. Fevers resolved. Antibiotics were continued. Intermittent problems with urinary retention
and required straight cath. Patient stated he is getting tired of undergoing chemotherapy mentally and physically and he talk with his family and decide [facility]. Family per patient agreed for hospice.
Patient was also eval by oncology. Patient be discharged to SNF on hospice.
Discharge Plan
-
Patient Disposition: Home with Hospice
Discharge Diagnosis/Procedures: Sepsis secondary to pneumonia
Pancytopenia secondary to chemotherapy
Symptomatic anemia status post blood transfusion
Condition: Fair
Diet: As tolerated
Activity: With assistance and As tolerated
Driving Restrictions: Not until seen by your Dr
Referrals:
Gilbert Boo MD [Family Provider] -
Prescriptions:
New
tamsulosin 0.4 mg Capsule
0.4 mg PO DAILY 30 Days Qty: 30 0RF
Continued
therapeutic multivitamin Tablet
1 tab PO Q48H@0800
oxycodone 5 mg Tablet
5 mg PO Q8H
lactulose 10 gram/15 mL Solution
15 ml PO [id number] PRN (Reason: constipation)
lorazepam [Ativan] 1 mg Tablet
1 mg PO DAILY PRN (Reason: anxiety)
Patient Comments:
12/23/2023, pt. uses prior to CT, MRI, or PET scans.
Metamucil (sugar) Powder
1 tbsp PO Q72H
Trelstar
1 dose IM [id number]
Patient Comments:
12/23/2023, pt. gets through [facility].
dexamethasone 4 mg tablet
1 mg PO DAILY
prednisone 1 mg Tablet
5 mg PO 2XD
loratadine [Allergy Relief (loratadine)] 10 mg Tablet
10 mg PO DAILY
Discontinued
atorvastatin 10 MG tablet
10 mg PO Q48H@2200
Patient Comments:
Glucosamine Chondroitin
1 cap PO Q48H@0800
zinc gluconate 30 mg Tablet
30 mg PO Q72H
hydrochlorothiazide [Microzide] 12.5 mg Capsule
25 mg PO 1XD
Discharge Orders:
Discharge Patient (As Directed); Ordered 03/06/24
Ordered By: Jonny Johnson
Discharge Date and Time
Discharge Date/Time: 03/06/24 10:24
Print Language: ALBANIAN
--- NOTE | 2024-03-06 15:27 | CM ---
Patient has been cleared for discharge to [facility] for [facility]. Patient is to be transitioned to hospice at [place]. Ambulance transport was at 10:00 AM.
== END 2024-03-06 10:24 | disposition hospice, home (50) | DRG 871 ==
LOC: 2 NORTH 04:27
PROVIDERS: Emergency Medicine; ADMITTING PHYSICIAN Hospitalist; ATTENDING PHYSICIAN Hospitalist; CONSULT PHYSICIAN Internal Medicine Hematology & Oncology; EMERGENCY PHYSICIAN Emergency Medicine; FAMILY PHYSICIAN Internal Medicine
PROC: 30243N1 Transfusion of Nonautologous Red Blood Cells into Central Vein, Percutaneous Approach (ICD-10-PCS; 2024-03-05)
DX: A41.9 Sepsis, unspecified organism (principal); D61.810 Antineoplastic chemotherapy induced pancytopenia; J18.9 Pneumonia, unspecified organism; C79.51 Secondary malignant neoplasm of bone; F11.20 Opioid dependence, uncomplicated; E87.1 Hypo-osmolality and hyponatremia; D70.1 Agranulocytosis secondary to cancer chemotherapy; R50.81 Fever presenting with conditions classified elsewhere; T45.1X5A Adverse effect of antineoplastic and immunosuppressive drugs, initial encounter; Z66 Do not resuscitate; C61 Malignant neoplasm of prostate; G89.3 Neoplasm related pain (acute) (chronic); G89.4 Chronic pain syndrome; R19.5 Other fecal abnormalities; E78.5 Hyperlipidemia, unspecified; R33.9 Retention of urine, unspecified; Z79.52 Long term (current) use of systemic steroids; Z79.899 Other long term (current) drug therapy; Z90.79 Acquired absence of other genital organ(s)
CPT/HCPCS: 70450; 71046; 80048; 80053; 81003; 82607; 83540; 83550; 83605; 85025; 85027; 86850; 86900; 86901; 86920; 87040; 87811; 93005; 96361; 96374; 97162; 97166; 97530; 99285; P9016